=== PATIENT | female | born 1935 | race Caucasian/White ===

== ENCOUNTER 2023-08-14 19:44 | Emergency (ER) | payer OTHER, SELFPAY ==
[2023-08-14 19:52] VITALS: BP 145/64; PULSE 53; RESP 16; TEMP 36.2; O2SAT 96
[2023-08-14] MEDS: TRANEXAMIC ACID 100 MG/ML INJ 1000 MG TOPICAL (20:07)
--- NOTE | 2023-08-14 20:09 | ED.GENADULT ---
HPI - General Adult General Chief complaint: Dental/Oral/Mouth Injury/Pain Stated complaint: Bleeding post 4 teeth pulled on Time Seen by Provider: 08/14/23 19:53 Source: patient Mode of arrival: ambulatory Limitations: no limitations History of Present Illness HPI narrative: Patient is an 87-year-old woman here with her daughter. She lives at at a care facility, they called [facility] because she is having bleeding from her gums were she had teeth removed 4 days ago. Daughter says that she had done fine initially, she is on Eliquis for AFib and that was held for couple of days and then restarted 3 days ago. She had a little bit of bleeding on and off throughout the day today but apparently tonight it has been nonstop. She does not have any pain. No other complaints. Related Data Home Medications Medication Instructions Recorded Confirmed albuterol sulfate 90 mcg/actuation 1 - 2 puff inhalation Q4H PRN 08/14/23 08/14/23 aerosol inhaler wheezing allopurinol 300 mg tablet 300 mg PO DAILY 08/14/23 08/14/23 apixaban 5 mg tablet (Eliquis) 5 mg PO BID 08/14/23 08/14/23 calcium carbonate 500 mg-vitamin 1 tab PO 3XD 08/14/23 08/14/23 D3 10 mcg (400 unit) tablet (Oyster Shell Calcium-Vitamin D3) chlorhexidine gluconate 0.12 % PO 08/14/23 mouthwash citalopram 10 mg tablet 10 mg PO DAILY 08/14/23 08/14/23 citalopram 20 mg tablet 20 mg PO DAILY 08/14/23 08/14/23 fluticasone 250 mcg-salmeterol 50 1 ea inhalation BID 08/14/23 08/14/23 mcg/dose blistr powdr for inhalation inhalational spacing device 08/14/23 08/14/23 (Aerochamber Plus Flow-Vu) iron 150 mg-C 60 mg-B12 25 1 cap PO DAILY 08/14/23 08/14/23 mcg-folic acid 1 on-mnhjcls-ft.acid capsule (Ferrex) methylprednisolone 4 mg tablets in 0 mg PO DIRECTED 08/14/23 08/14/23 a dose pack metoprolol succinate 25 mg 25 mg PO DAILY 08/14/23 08/14/23 tablet,extended release 24 hr ondansetron 4 mg disintegrating 4 mg PO Q8H PRN nausea/vomiting 08/14/23 08/14/23 tablet potassium chloride 20 mEq 20 meq PO DAILY 08/14/23 08/14/23 tablet,extended release rosuvastatin 40 mg tablet 40 mg PO QPM 08/14/23 08/14/23 torsemide 20 mg tablet 20 mg PO DAILY 08/14/23 08/14/23 Allergies Allergy/AdvReac Type Severity Reaction Status Date / Time No Known Drug Allergies Allergy Verified 08/14/23 20:00 Exam Narrative: Exam Narrative: Vital signs reviewed In general, alert, well-appearing elderly woman. ENT: 1 of her central lower incisors has been removed, there was a flap of tissue and a little residual strand of what looks like absorbable suture, I suspect that there was a stitch there that came undone. There is consistent venous oozing from this spot. No arterial bleeding. Const: Vital Signs, click to edit/add: Vital Signs - 24 hr 08/14/23 19:52 Temperature 97.2 F L Pulse Rate [Pulse Oximeter] 53 L Respiratory Rate 16 Blood Pressure [Ri ght Upper Arm] 145/64 H Pulse Oximetry 96 Oxygen Delivery Me thod Room Air Documenting provider has reviewed patient's vital signs: yes Course Course ED Course: I'm going to try some topical TXA see if I can get this to stop. Would consider placing a suture if it does not respond, though the tissue looks kind of friable and I am not sure that there is anything that will hold a stitch. After topical TXA, bleeding has stopped. I think I am going to go ahead and let her go home, advised no eating or drinking tonight as this is certainly fragile tissue. If there is some recurrent using they can use pressure, provided with some gauze for that use. Uncontrolled bleeding, return to the ER. Her daughter was able to speak with the dentist who did not really have anything helpful to suggest aside from getting the bleeding stopped. If she is continuing to bleed throughout the day tomorrow would recommend that she see the dentist again. Vital Signs Vital signs: Initial Vital Signs Temperature 97.2 F L 08/14/23 19:52 Temperature Source Temporal Artery Scan 08/14/23 19:52 Pulse Rate 53 L 08/14/23 19:52 Respiratory Rate 16 08/14/23 19:52 Blood Pressure 145/64 H 08/14/23 19:52 Blood Pressure Mean 91 08/14/23 19:52 Blood Pressure Position Sitting 08/14/23 19:52 Pulse Oximetry 96 08/14/23 19:52 Oxygen Delivery Method Room Air 08/14/23 19:52 Vital Signs Temperature 97.2 F L 08/14/23 19:52 Pulse Rate 53 L 08/14/23 19:52 Respiratory Rate 16 08/14/23 19:52 Blood Pressure 145/64 H 08/14/23 19:52 Pulse Oximetry 96 08/14/23 19:52 Oxygen Delivery Method Room Air 08/14/23 19:52 Temperature 97.2 F L 08/14/23 19:52 Pulse Rate 53 L 08/14/23 19:52 Respiratory Rate 16 08/14/23 19:52 Blood Pressure 145/64 H 08/14/23 19:52 Pulse Oximetry 96 08/14/23 19:52 Oxygen Delivery Method Room Air 08/14/23 19:52 Medications Administered Medications: Discontinued Medications Generic Name Dose Route Start Last Admin Trade Name Freq PRN Reason Stop Dose Admin Tranexamic Acid 1,000 mg 08/14/23 20:02 08/14/23 20:07 Tranexamic Acid 100 Mg/Ml Inj TOPICAL 08/14/23 20:03 1,000 mg ONCE ONE Administration Discharge Plan Discharge Clinical Impression: Anticoagulated, Gingival bleeding Patient Disposition: Home, Self-Care Condition: Improved Additional Instructions: No eating or drinking tonight. Reassess tomorrow, if ongoing problems with oozing, can treat with pressure, would recommend dental follow-up. For uncontrolled bleeding, return any time to the ER. Prescriptions: No Action fluticasone propion-salmeterol 250-50 mcg/dose blister with device 1 ea INHALATION BID torsemide 20 mg tablet 20 mg PO DAILY citalopram 10 mg tablet 10 mg PO DAILY citalopram 20 mg tablet 20 mg PO DAILY allopurinol 300 mg tablet 300 mg PO DAILY metoprolol succinate 25 mg tablet extended release 24 hr 25 mg PO DAILY methylprednisolone 4 mg tablets,dose pack 0 mg PO DIRECTED albuterol sulfate 90 mcg/actuation HFA aerosol inhaler 1 - 2 puff INHALATION Q4H PRN (Reason: wheezing) ondansetron 4 mg tablet,disintegrating 4 mg PO Q8H PRN (Reason: nausea/vomiting) (DME) Aerochamber Plus Flow-Vu Spacer MISCELLANEOUS Patient Comments: FOR HOME USE* rosuvastatin 40 mg tablet 40 mg PO QPM chlorhexidine gluconate 0.12 % mouthwash PO Ferrex 150 Forte Plus 150-60-25-1 mu-pb-obk-mg capsule 1 cap PO DAILY calcium carbonate-vitamin D3 [Oyster Shell Calcium-Vit D3] 500 mg-10 mcg (400 unit) tablet 1 tab PO 3XD Eliquis 5 mg tablet 5 mg PO BID potassium chloride 20 mEq tablet extended release 20 meq PO DAILY Follow Up/Referrals: TAHIRA NAVARRETE DO [Primary Care Provider] - Stand Alone Forms: [employer] Info Instructions
--- NOTE | 2023-08-14 21:10 | PC.NURSE ---
patient DC accompanied by daughter, bleeding has stopped at this time. DC instructions reviewed with daughter and patient with no further questions. extra gauze sent home with patient
== END 2023-08-14 21:15 | disposition home or self-care (01) ==
PROVIDERS: Emergency Provider Emergency Medicine; PCP Student in an Organized Health Care Education/Training Program
DX: K06.8 Other specified disorders of gingiva and edentulous alveolar ridge (principal); Z79.01 Long term (current) use of anticoagulants
CPT/HCPCS: 99283; 99284

== ENCOUNTER 2023-11-05 12:02 | Emergency (ER) | payer OTHER, SELFPAY ==
[2023-11-05 12:06] VITALS: BP 92/57; PULSE 64; RESP 18; TEMP 36.6; O2SAT 95; BMI 42.9
--- NOTE | 2023-11-05 12:25 | CRLHL7_ITS ---
For Patients: As a result of the Century Cures Act, medical imaging exams and procedure reports are released immediately into your electronic medical record. You may view this report before your referring provider. If you have questions, please contact your health care provider. INDICATION: swelling, pain COMPARISON: None. TECHNIQUE: A compression venous ultrasound exam was performed of the right lower extremity using rosales-scale imaging, color Doppler and spectral Doppler analysis. FINDINGS: Sonographic imaging of the right lower extremity demonstrates normal compressibility and color Doppler venous blood flow within the common femoral vein and deep femoral vein. Prior GSV stripping. Within the thigh, the femoral vein is patent and compressible. At a lower level, the popliteal and posterior tibial veins also show normal compressibility and color Doppler venous blood flow. Limited imaging of the contralateral groin demonstrates a normal spectral waveform and color Doppler venous blood flow within the left common femoral vein. IMPRESSION: No evidence of deep vein thrombosis within the right lower extremity. Dictated by Marvin Griffiths MD @ 11/05/2023 1:09:52 PM (Electronically Signed)
--- NOTE | 2023-11-05 12:37 | ED_ITS ---
HPI - Extremity Injury (Lower) General Date Seen: 11/05/23 Chief Complaint: Lower Extremity Swelling Stated Complaint: RT leg possible cellulitis Time Seen by Provider: 11/05/23 12:05 Source: patient and family Mode of arrival: ambulatory Limitations: no limitations History of Present Illness HPI Narrative: This very nice 87-year-old lady presents here with right leg discomfort, and swelling. She has noted this in the last day or 2 but clearly has worsened today. They were worried about cellulitis that she has had this in the past, but there is no redness or warmth associated with this. She has no history of trauma or banging it. She has recently started Eliquis, as she has been having a couple cardioversions done, is due to have a pacemaker insertion in a few more weeks. She is brought in by family member. She has no previous history of DVT, denies any chest pain shortness of breath associated with this, coughing hemoptysis, or syncope. Related Data Home Medications ?Medication ?Instructions ?Recorded ?Confirmed albuterol sulfate 90 mcg/actuation 1 - 2 puff inhalation Q4H PRN 08/14/23 11/05/23 aerosol inhaler wheezing allopurinol 300 mg tablet 300 mg PO DAILY 08/14/23 11/05/23 apixaban 5 mg tablet (Eliquis) 5 mg PO BID 08/14/23 11/05/23 calcium carbonate 500 mg-vitamin 1 tab PO 3XD 08/14/23 11/05/23 D3 10 mcg (400 unit) tablet (Oyster Shell Calcium-Vitamin D3) chlorhexidine gluconate 0.12 % PO 08/14/23 mouthwash citalopram 10 mg tablet 10 mg PO DAILY 08/14/23 11/05/23 citalopram 20 mg tablet 20 mg PO DAILY 08/14/23 11/05/23 fluticasone 250 mcg-salmeterol 50 1 ea inhalation BID 08/14/23 11/05/23 mcg/dose blistr powdr for inhalation inhalational spacing device 08/14/23 08/14/23 (Aerochamber Plus Flow-Vu) iron 150 mg-C 60 mg-B12 25 1 cap PO DAILY 08/14/23 11/05/23 mcg-folic acid 1 lo-wntltrq-vi.acid capsule (Ferrex) metoprolol succinate 25 mg 37.5 mg PO DAILY 08/14/23 11/05/23 tablet,extended release 24 hr ondansetron 4 mg disintegrating 4 mg PO Q8H PRN nausea/vomiting 08/14/23 11/05/23 tablet potassium chloride 20 mEq 20 meq PO DAILY 08/14/23 11/05/23 tablet,extended release rosuvastatin 40 mg tablet 40 mg PO QPM 08/14/23 11/05/23 torsemide 20 mg tablet 10 mg PO DAILY 08/14/23 11/05/23 Allergies Allergy/AdvReac Type Severity Reaction Status Date / Time lisinopril AdvReac Verified 11/05/23 12:13 Review of Systems Status of ROS: Reports: 10 or more systems reviewed and unremarkable except as noted in History and below [facility] Social History Smoking Status: Unknown if ever smoked How often do you have a drink containing alcohol: never How often do you have six or more drinks on one occasion: Never AUDIT-C Alcohol total score: 0 Non-prescribed substance use: denies use service: No Exam Narrative: Exam Narrative: On examination lady's in no apparent distress pleasant and alert, maybe a little bit more swelling and right versus left, 2 cm difference between the circumference of the right calf verses the left. I do not see any edema, she has some venous varicosities there is no redness or warmth or any portal of entry suggestive of cellulitic pattern. Her eye popliteal fossa is clear, her DP and posterior tibial pulses normal, she has normal range of motion of her right ankle right knee, and right hip. No evidence on SLR of any sciatic type impingement. With no radiation of discomfort. She Const: Vital Signs, click to edit/add: Vital Signs - 24 hr 11/05/23 12:06 Temperature 97.8 F Pulse Rate [Pulse Oximeter] 64 Respiratory Rate 18 Blood Pressure [Le ft Upper Arm] 92/57 L Pulse Oximetry 95 Oxygen Delivery Me thod Room Air Documenting provider has reviewed patient's vital signs: yes Course Course ED Course: Given the clinical examination history, and the negative ultrasound I think we can send her home, they were very reassured by this, follow-up as needed, suggest acetaminophen for the discomfort as this may be leg cramp related. Continue current medication Vital Signs Vital signs: Initial Vital Signs Temperature 97.8 F 11/05/23 12:06 Temperature Source Temporal Artery Scan 11/05/23 12:06 Pulse Rate 64 11/05/23 12:06 Respiratory Rate 18 11/05/23 12:06 Blood Pressure 92/57 L 11/05/23 12:06 Blood Pressure Mean 68 L 11/05/23 12:06 Blood Pressure Position Sitting 11/05/23 12:06 Pulse Oximetry 95 11/05/23 12:06 Oxygen Delivery Method Room Air 11/05/23 12:06 Vital Signs Temperature 97.8 F 11/05/23 12:06 Pulse Rate 64 11/05/23 12:06 Respiratory Rate 18 11/05/23 12:06 Blood Pressure 92/57 L 11/05/23 12:06 Pulse Oximetry 95 11/05/23 12:06 Oxygen Delivery Method Room Air 11/05/23 12:06 Temperature 97.8 F 11/05/23 12:06 Pulse Rate 64 11/05/23 12:06 Respiratory Rate 18 11/05/23 12:06 Blood Pressure 92/57 L 11/05/23 12:06 Pulse Oximetry 95 11/05/23 12:06 Oxygen Delivery Method Room Air 11/05/23 12:06 Medications Administered Medications: Discontinued Medications Generic Name Dose Route Start Last Admin Trade Name Waldemar PRN Reason Stop Dose Admin Acetaminophen 1,000 mg 11/05/23 12:25 11/05/23 12:38 Acetaminophen 500 Mg Tablet PO 11/05/23 12:26 1,000 mg ONCE ONE Administration MDM - Extremity Injury (Lower) MDM Narrative Medical decision making narrative: To the right leg pain and swelling, I think the ultrasound will be ordered to rule out a DVT I think this is a little bit less likely given the fact she is already anticoagulated, but can occur. We will also be helpful to make sure that she does not have a hematoma formation secondary to her use of the anticoagulant. I do not think there has been Achilles rupture. Or any other issue associated with this. I do not think this is an internal knee derangement. We will give her some Tylenol also, she was comfortable with this plan. Medical Records Attestation: I reviewed the patient's medical records. Imaging Data Venous ultrasound: Attestation: I have reviewed the pertinent imaging results. My impression: No evidence of clot, normal compressibility, no fluid. Radiologist's impression: Negative acute Discharge Plan Discharge Clinical Impression: Leg pain, right Patient Disposition: Home w/ Parent or Adult Condition: Stable Instructions: Leg Cramps (ED), Leg Pain (ED) Additional Instructions: Ultrasound was negative for any suggestion of a clot, or hematoma, I wonder if this is more muscle related, and I would continue to monitor this use some Tylenol, reassurance given. Activity Level: Light activity Prescriptions: No Action fluticasone propion-salmeterol 250-50 mcg/dose blister with device 1 ea INHALATION BID torsemide 20 mg tablet 10 mg PO DAILY citalopram 10 mg tablet 10 mg PO DAILY citalopram 20 mg tablet 20 mg PO DAILY Hold Instructions: taking 10mg allopurinol 300 mg tablet 300 mg PO DAILY metoprolol succinate 25 mg tablet extended release 24 hr 37.5 mg PO DAILY albuterol sulfate 90 mcg/actuation HFA aerosol inhaler 1 - 2 puff INHALATION Q4H PRN (Reason: wheezing) ondansetron 4 mg tablet,disintegrating 4 mg PO Q8H PRN (Reason: nausea/vomiting) (DME) Aerochamber Plus Flow-Vu Spacer MISCELLANEOUS Patient Comments: FOR HOME USE* rosuvastatin 40 mg tablet 40 mg PO QPM chlorhexidine gluconate 0.12 % mouthwash PO Ferrex 150 Forte Plus 150-60-25-1 yg-qd-sku-mg capsule 1 cap PO DAILY Hold Instructions: not taking per patient calcium carbonate-vitamin D3 [Oyster Shell Calcium-Vit D3] 500 mg-10 mcg (400 unit) tablet 1 tab PO 3XD Eliquis 5 mg tablet 5 mg PO BID potassium chloride 20 mEq tablet extended release 20 meq PO DAILY Follow Up/Referrals: TAHIRA NAVARRETE DO [Primary Care Provider] - Stand Alone Forms: [employer] Info Instructions
[2023-11-05] MEDS: ACETAMINOPHEN 500 MG TABLET 1000 MG PO (12:38)
== END 2023-11-05 13:25 | disposition home or self-care (01) ==
PROVIDERS: Emergency Provider Family Medicine; PCP Student in an Organized Health Care Education/Training Program
DX: M79.604 Pain in right leg (principal)
CPT/HCPCS: 93971; 99283; 99284; A9270

== ENCOUNTER 2024-12-13 10:33 | Emergency (ER) | payer MEDICARE, BC, SELFPAY ==
--- OUTSIDE RECORDS SUMMARY | 2024-12-13 10:35 | XMS_ITS | Encounter Summary ---
Author Organization [facility] Address [address] [place] [address] Care Team Providers Care Bd Special Education Teacher Name Role Phone Acacia Wagner DO Primary Care Provider [phone] Encounter Details Date Type Department Care Team (Late st Contact Info) Description 08/27/2024 Orders Only [facility] [address] [place] [address] Everardo Wilson MD [address] [place] [address] Stage 3b chronic kidney disease (HCC) Social History Tobacco Use Types Packs/Day Years Used Date Smoking Tobacco: Former Cigarettes 0.5 15 0 04/16/1998 - 2013 Smokeless Tobacco: Never Alcohol Use Standard Drinks/Week Comments Not Currently 0 (1 standard drink = 0.6 oz pur e alcohol) Comments Unknown Sex and Gender Information Value Date Recorded Sex Assigned at Not on file Legal Sex Female 4:20 PM EST Gender Identity Not on file Sexual Orientation Not on file documented as of this encounter Plan of Treatment Upcoming Encounters Date Type Department Care Team (Late st Contact Info) Description 12/22/2024 3:30 PM CDT Office Visit [facility] [address] [place] [phone] Everardo Wilson MD [address] [place] [phone] 12/23/2024 Orders Only [facility] [place] [phone] Everardo Wilson MD [address] [place] [address] Stage 3b chronic kidney disease (HCC) documented as of this encounter Procedures Procedure Name Priority Date/Time Associated Diagnosis Comments IRON PANEL (FE, TIBC, TSAT) Routine 08/27/2024 10:13 AM CDT Stage 3b chronic kidney disease (HCC) URINALYSIS WITH MICROSCOPIC Routine 08/27/2024 10:13 AM CDT Stage 3b chronic kidney disease (HCC) HEMOGLOBIN Routine 08/27/2024 10:13 AM CDT Stage 3b chronic kidney disease (HCC) PTH, INTACT Routine 08/27/2024 10:13 AM CDT Stage 3b chronic kidney disease (HCC) FERRITIN Routine 08/27/2024 10:13 AM CDT Stage 3b chronic kidney disease (HCC) RENAL FUNCTION PANEL Routine 08/27/2024 10:13 AM CDT Stage 3b chronic kidney disease (HCC) documented in this encounter Results * (ABNORMAL) Urinalysis with microscopic (08/27/2024 10:13 AM CDT) Color, Urine YELLOW YELLOW [facility] Appearance Urine CLEAR CLEAR [facility] Specific Institute, UA 1.011 1.001 - 1.035 [facility] pH Urine 6.5 5.0 - 8.0 [facility] Glucose, Ur NEGATIVE NEGATIVE [facility] Bilirubin, Urine NEGATIVE NEGATIVE [facility] Ketones, Urine NEGATIVE NEGATIVE [facility] Hemoglobin Ur Ql Strip NEGATIVE NEGATIVE [facility] Protein, Ur TRACE(A) NEGATIVE [facility] Nitrite, Urine NEGATIVE NEGATIVE [facility] WBC Esterase Urine TRACE(A) NEGATIVE [facility] WBC, Urine 0-5 < OR = 5 /HPF [facility] RBC, Urine NONE SEEN < OR = 2 /HPF [facility] Epithelial Cells in Urine 0-5 < OR = 5 /HPF [facility] Bacteria NONE SEEN NONE SEEN /HPF [facility] Hyaline Casts, Urine 0-5(A) NONE SEEN /LPF [facility] Note: [facility] Comment: This urine was analyzed for the presence of WBC, RBC, bacteria, casts, and other formed elements. Only those elements seen were reported. Urine specimen (specimen) Urine specimen obtained by clean catch procedure / Unknown 08/27/2024 10:13 AM CDT 08/27/2024 10:14 AM CDT Narrative Resulting Agency Comment Performing Organization Information: Site ID: Name: [facility] Address: [address] [place] [phone] Director: Keaton Grady us Everardo Wilson MD LAB URINE ORDERABLES Final Re sult [facility] [place] [address] [phone] * (ABNORMAL) PTH, intact (08/27/2024 10:13 AM CDT) Parathyroid Hormone, Intact 166(H) 16 - 77 pg/mL [facility] Comment: Interpretive Guide Intact PTH Calcium ------- Normal Parathyroid Normal Normal Hypoparathyroidism Low or Low Normal Low Hyperparathyroidism Primary Normal or High High Secondary High Normal or Low Tertiary High High Non-Parathyroid Hypercalcemia Low or Low Normal High Blood specimen (specimen) Venous blood / Unknown 08/27/2024 10:13 AM CDT 08/27/2024 10:14 AM CDT Narrative Resulting Agency Comment Performing Organization Information: Site ID: CB Name: [facility] Address: [address] [place] [phone] Director: Keaton Grady Everardo Wilson MD LAB BLOOD ORDERABLES Final Re sult Performing Organization Address [facility] Co de Phone Number [facility] [address] [place] [phone] * Ferritin (08/27/2024 10:13 AM CDT) Ferritin 30 16 - 288 ng/mL [facility] Blood specimen (specimen) Venous blood / Unknown 08/27/2024 10:13 AM CDT 08/27/2024 10:14 AM CDT Narrative Resulting Agency Comment Performing Organization Information: Site ID: CB Name: [facility] Address: [address] [place] [phone] Director: Keaton Grady Everardo Wilson MD LAB BLOOD ORDERABLES Final Re sult Performing Organization Address [facility] de Phone Number [facility] Basilio Kilpatrick [address] [place] [phone] * Iron Panel (08/27/2024 10:13 AM CDT) Iron, Total 71 45 - 160 mcg/dL [facility] TIBC 317 250 - 450 mcg/dL (calc) [facility] Iron Saturation (TSat) 22 16 - 45 % (calc) [facility] Blood specimen (specimen) Venous blood / Unknown 08/27/2024 10:13 AM CDT 08/27/2024 10:14 AM CDT Narrative Resulting Agency Comment Performing Organization Information: Site ID: CB Name: [facility] Address: [address] [place] [phone] Director: Keaton Grady Everardo Wilson MD LAB BLOOD ORDERABLES Final Re sult Performing Organization Address [facility] Co de Phone Number [facility] Basilio [facility] [address] [place] [phone] * Hemoglobin (08/27/2024 10:13 AM CDT) Hemoglobin 12.1 11.7 - 15.5 g/dL [facility] Blood specimen (specimen) Venous blood / Unknown 08/27/2024 10:13 AM CDT 08/27/2024 10:14 AM CDT Narrative Resulting Agency Comment Performing Organization Information: Site ID: Name: [facility] Address: [address] [place] [phone] Director: Keaton Grady us Everardo Wilson MD LAB BLOOD ORDERABLES Final Re sult Performing Organization Address [facility] Co de Phone Number [facility]ilio [facility] [address] [place] [phone] * (ABNORMAL) Renal function panel (08/27/2024 10:13 AM CDT) Glucose 110(H) 65 - 99 mg/dL [facility] Comment: Fasting reference interval For someone without known diabetes, a glucose value between 100 and 125 mg/dL is consistent with prediabetes and should be confirmed with a follow-up test. BUN 45(H) 7 - 25 mg/dL [facility] Creatinine 2.49(H) 0.60 - 0.95 mg/dL [facility] eGFR CKD-EPI CR 2020 18(L) > OR = 60 mL/min/1.7 3m2 [facility] BUN/Creatinine Ratio 18 6 - 22 (calc) [facility] Sodium 143 135 - 146 mmol/L [facility] Potassium 4.0 3.5 - 5.3 mmol/L [facility] Chloride 103 98 - 110 mmol/L [facility] Bicarbonate (CO2) 29 20 - 32 mmol/L [facility] Calcium 9.4 8.6 - 10.4 mg/dL [facility] Phosphorus 3.3 2.1 - 4.3 mg/dL [facility] Albumin 3.8 3.6 - 5.1 g/dL [facility] Blood specimen (specimen) Venous blood / Unknown 08/27/2024 10:13 AM CDT 08/27/2024 10:14 AM CDT Narrative Resulting Agency Comment Performing Organization Information: Site ID: CB Name: [facility] Address: [address] [place] [phone] Director: Keaton Grady us Everardo Wilson MD LAB BLOOD ORDERABLES Final Re sult [facility] Basilio Kilpatrick [address] [place] [phone] documented in this encounter Visit Diagnoses Diagnosis Stage 3b chronic kidney disease (HCC) Stage 3b chronic kidney disease (HCC) documented in this encounter Care Teams Bd Special Education Teacher Relationship Specialty Start Date End Date Acacia Wagner DO [address] [place] [address] PCP - General Family Medicine 04/18/23 documented as of this encounter
--- OUTSIDE RECORDS SUMMARY | 2024-12-13 10:35 | XMS_ITS | Encounter Summary ---
Author Organization [facility] Address [address] [place] [address] Care Team Providers Care Shirt Finisher Name Role Phone Acacia Wagner DO Primary Care Provider [phone] Encounter Details Date Type Department Care Team (Late st Contact Info) Description 08/22/2024 Documentation Only [facility] [address] [place] [address] Wendy Edgar [address] [address] Social History Tobacco Use Types Packs/Day Years [...] Encounters Date Type Department Care Team (Late Contact Info) Description 12/22/2024 3:30 PM CDT Office Visit [facility] [address] [place] [address] Everardo Wilson MD [address] [place] [address] 12/23/2024 Orders Only [facility] [place] [address] Everardo Wilson MD [address] [place] [address] Stage 3b chronic kidney disease (HCC) documented as of this encounter Procedures Procedure Name Priority Date/Time Associated Diagnosis Comments BASIC METABOLIC PANEL (BMP) (EXTERNAL LAB ENTRY) Routine 08/13/2024 URINALYSIS Routine 08/13/2024 BASIC METABOLIC PANEL (BMP) (EXTERNAL LAB ENTRY) Routine 06/10/2024 documented in this encounter Results * (ABNORMAL) Basic Metabolic Panel (BMP) (08/13/2024) Sodium 140 mEq/L [facility] Potassium 3.8 mEq/L [facility] Chloride 100 [facility] Carbon Dioxide 28 mmol/L [facility] Calcium 9.3 mg/dL [facility] BUN 46(H) mg/dL [facility] Creatinine 2.67(H) mg/dL [facility] Glucose 93 mg/dL [facility] eGFR 17(L) [facility] Anion Gap 12 [facility] 08/13/2024 us Historical Provider LAB BLOOD ORDERABLES Char l Result [facility] * (ABNORMAL) Urinalysis (08/13/2024) WBC, Urine 26-50(A) [facility] RBC, Urine 0-2 [facility] Bacteria, Urine moderate(A ) [facility] Hyaline Casts, Urine 11-25(A) [facility] Epithelial Cells, (Ext Lab Entry) many(A) [facility] Urine specimen (specimen) Urine specimen obtained by clean catch procedure / Unknown 08/13/2024 us Historical Provider LAB URINE ORDERABLES Char l Result [facility] * (ABNORMAL) Basic Metabolic Panel (BMP) (06/10/2024) Sodium 139 mEq/L [facility] Potassium 4.4 mEq/L [facility] Chloride 97(L) [facility] Carbon Dioxide 33(H) mmol/L [facility] Calcium 9.4 mg/dL [facility] BUN 31(H) mg/dL [facility] Creatinine 1.84(H) mg/dL [facility] Glucose 103(H) mg/dL [facility] eGFR 26(L) [facility] Anion Gap 9 [facility] 06/10/2024 Historical Provider LAB BLOOD ORDERABLES Char l Result [facility] documented in this encounter Visit Diagnoses Not on filedocumented in this encounter Care Teams Shirt Finisher Relationship Specialty Start Date End Date Acacia Wagner [place] [address] PCP - General Family Medicine 04/18/23 documented as of this encounter
--- OUTSIDE RECORDS SUMMARY | 2024-12-13 10:35 | XMS_ITS | Encounter Summary ---
Author Organization [facility] Address [address] [place] [address] Care Team Providers Care Material Spreader Name Role Phone Acacia Wagner DO Primary Care Provider [phone] Encounter Details Date Type Department Care Team (Late st Contact Info) Description 03/08/2024 Orders Only [facility] [address] [place] [address] [phone] Everardo Wilson MD [address] [place] [address] Stage 3b chronic kidney disease (HCC) Social History Tobacco Use Types Packs/Day Years Used Date Smoking Tobacco: Former Cigarettes 0.5 15 1 - 2013 Smokeless Tobacco: Never Alcohol Use [...] of [facility] [address] [place] [address] Everardo Wilson MD [address] [place] [phone] 12/23/2024 Orders Only [facility] [address] [place] [address] Everardo Wilson MD [address] [place] [address] Stage 3b chronic kidney disease (HCC) documented as of this encounter Procedures Procedure Name Priority Date/Time Associated Diagnosis Comments HEMOGLOBIN Routine 02/26/2024 2:45 PM ADVANCED MANUFACTURING ENGINEER Stage 3b chronic kidney disease (HCC) PTH, INTACT Routine 02/26/2024 2:45 PM ADVANCED MANUFACTURING ENGINEER Stage 3b chronic kidney disease (HCC) RENAL FUNCTION PANEL Routine 02/26/2024 2:45 PM ADVANCED MANUFACTURING ENGINEER Stage 3b chronic kidney disease (HCC) documented in this encounter Results * Hemoglobin (02/26/2024 2:45 PM ADVANCED MANUFACTURING ENGINEER) Hemoglobin 12.3 11.7 - 15.5 g/dL See order comments Blood specimen (specimen) Venous blood / Unknown 02/26/2024 2:45 PM ADVANCED MANUFACTURING ENGINEER 02/26/2024 2:46 PM ADVANCED MANUFACTURING ENGINEER Narrative [facility] - 02/27/2024 1:33 PM ADVANCED MANUFACTURING ENGINEER FASTING:NO FASTING: NO Resulting Agency Comment Performing Organization Information: Site ID: CB Name[facility] Address: [address] [place] [phone] Director: Keaton Grady us Everardo Wilson MD LAB BLOOD ORDERABLES Final Re sult [facility] See order comments [place] [address] * (ABNORMAL) PTH, intact (02/26/2024 2:45 PM ADVANCED MANUFACTURING ENGINEER) Parathyroid Hormone, Intact 307(H) 16 - 77 pg/mL See order comments Comment: Interpretive Guide Intact PTH Calcium ------- Normal Parathyroid Normal Normal Hypoparathyroidism Low or Low Normal Low Hyperparathyroidism Primary Normal or High High Secondary High Normal or Low Tertiary High High Non-Parathyroid Hypercalcemia Low or Low Normal High Blood specimen (specimen) Venous blood / Unknown 02/26/2024 2:45 PM ADVANCED MANUFACTURING ENGINEER 02/26/2024 2:46 PM ADVANCED MANUFACTURING ENGINEER Narrative [facility] - 02/27/2024 1:33 PM ADVANCED MANUFACTURING ENGINEER FASTING:NO FASTING: NO Resulting Agency Comment Performing Organization Information: Site ID: Name: [facility] Address: [address] [place] [phone] Director: Keaton Grady us Everardo Wilson MD LAB BLOOD ORDERABLES Final Re sult [facility] See order comments [place] [address] * (ABNORMAL) Renal function panel (02/26/2024 2:45 PM ADVANCED MANUFACTURING ENGINEER) Glucose 105 65 - 139 mg/dL See order comments Comment: Non-fasting reference interval BUN 35(H) 7 - 25 mg/dL See order comments Creatinine 1.73(H) 0.60 - 0.95 mg/dL See order comments eGFR CKD-EPI CR 2020 28(L) > OR = 60 mL/min/1.7 3m2 See order comments BUN/Creatinine Ratio 20 6 - 22 (calc) See order comments Sodium 138 135 - 146 mmol/L See order comments Potassium 3.7 3.5 - 5.3 mmol/L See order comments Chloride 96(L) 98 - 110 mmol/L See order comments Bicarbonate (CO2) 35(H) 20 - 32 mmol/L See order comments Calcium 8.6 8.6 - 10.4 mg/dL See order comments Phosphorus 2.9 2.1 - 4.3 mg/dL See order comments Albumin 3.3(L) 3.6 - 5.1 g/dL See order comments Blood specimen (specimen) Venous blood / Unknown 02/26/2024 2:45 PM ADVANCED MANUFACTURING ENGINEER 02/26/2024 2:46 PM ADVANCED MANUFACTURING ENGINEER Narrative [facility] - 02/27/2024 1:33 PM ADVANCED MANUFACTURING ENGINEER FASTING:NO FASTING: NO Resulting Agency Comment Performing Organization Information: Site ID: CB Name: [facility] Address: [address] [place] [phone] Director: Keaton Grady us Everardo Wilson MD LAB BLOOD ORDERABLES Final Re sult [facility] See order comments [place] [address] documented in this encounter Visit Diagnoses Diagnosis Stage 3b chronic kidney disease (HCC) Stage 3b chronic kidney disease (HCC) documented in this encounter Care Teams Material Spreader Relationship Specialty Start Date End Date Acacia Wagner DO [address] [place] [address] PCP - General Family Medicine 04/18/23 documented as of this encounter
--- OUTSIDE RECORDS SUMMARY | 2024-12-13 10:35 | XMS_ITS | Encounter Summary ---
Author Organization [facility] [place] Address [address] [place] [address] Care Team Providers Care Junk Dealer Name Role Phone Acacia Wagner DO Primary Care Provider [phone] Encounter Details Date Type Department Care Team (Late st Contact Info) Description 12/05/2024 Telephone [facility] [place] [address] [place] [address] Wendy Edgar [address] [facility] [address] [place] [address] Social History Tobacco Use Types Packs/Day [...] on file documented as of this encounter Miscellaneous Notes * Telephone Encounter - Wendy Edgar - 12/05/2024 11:52 AM CDT Spoke to patient regarding previsit labs to be completed prior to their office visit. Orders Faxed to Irina Fitzgerald documented in this encounter Plan of Treatment Upcoming Encounters Date Type Department Care Team (Late st Contact Info) Description 12/22/2024 3:30 PM CDT Office Visit [facility] [place] [address] Everardo Wilson MD [address] [place] [phone] 12/23/2024 Orders Only [facility] [place] [address] Everardo Wilson MD [address] [place] [phone] Stage 3b chronic kidney disease (HCC) documented as of this encounter Visit Diagnoses Not on filedocumented in this encounter Care Teams Junk Dealer Relationship Specialty Start Date End Date Acacia Wagner [place] [address] PCP - General Family Medicine 04/18/23 documented as of this encounter
--- OUTSIDE RECORDS SUMMARY | 2024-12-13 10:35 | XMS_ITS | Encounter Summary ---
Author Organization [facility] Address [address] [place] [address] Care Team Providers Care Hybrid Derivatives Trader Name Role Phone Acacia Wagner DO Primary Care Provider [phone] Encounter Details Date Type Department Care Team (Late st Contact Info) Description 12/08/2024 Orders Only [facility] [address] [place] [phone] Grace Navarro, RN [address] [place] [address] Stage 3b chronic kidney disease (HCC) (Primary Dx) Social History Tobacco Use Types Packs/Day Years [...] PM CDT Office Visit [facility] [address] [place] [address] Everardo Wilson MD [address] [place] [phone] 12/23/2024 Orders Only [facility] [place] [address] Everardo Wilson MD [address] [place] [address] Stage 3b chronic kidney disease (HCC) documented as of this encounter Procedures Procedure Name Priority Date/Time Associated Diagnosis Comments HEMOGLOBIN Routine 12/09/2024 Stage 3b chronic kidney disease (HCC) RENAL FUNCTION PANEL Routine 12/09/2024 Stage 3b chronic kidney disease (HCC) documented in this encounter Results * Hemoglobin (12/09/2024) Hemoglobin 12.4 g/dL [facility] Blood Venous blood / Unknown 12/09/2024 Everardo Wilson MD LAB BLOOD ORDERABLES Final Re sult [facility] * (ABNORMAL) Renal Function Panel (12/09/2024) Glucose 118(H) mg/dL [facility] BUN 31(H) mg/dL [facility] Creatinine 2.04(H) mg/dL [facility] BUN/Creatinine Ratio 15 [facility] Sodium 142 mEq/L [facility] Potassium 4.0 mEq/L [facility] Chloride 98 [facility] Carbon Dioxide 35(H) mmol/L [facility] Calcium 8.8 mg/dL [facility] Phosphorus, Serum 2.6 mg/dL [facility] Albumin (Blood) 3.5(L) g/dL [facility] eGFR 23(L) [facility] Blood Venous blood / Unknown 12/09/2024 Everardo Wilson MD LAB BLOOD ORDERABLES Final Re sult [facility] documented in this encounter Visit Diagnoses Diagnosis Stage 3b chronic kidney disease (HCC)- Primary Stage 3b chronic kidney disease (HCC) documented in this encounter Care Teams Hybrid Derivatives Trader Relationship Specialty Start Date End Date Acacia Wagner DO [address] [place] [address] PCP - General Family Medicine 04/18/23 documented as of this encounter
--- OUTSIDE RECORDS SUMMARY | 2024-12-13 10:35 | XMS_ITS | Clinical Summary ---
Author Organization [facility] [place] [place] Address [address] [facility] [place] [address] Phone Care Team Providers Care Florist Manager Name Role Phone Acacia Wagner DO Primary Care Provider [phone] Allergies Active Allergy Reactions Criticality Noted Date Comments Adhesive Tape Other (see comments) 10/23/2006 all adhesives Latex Itching 02/01/2014 Lisinopril Other (see comments) 10/28/2014 Medications meclizine (ANTIVERT) 25 MG tablet Take 12.5 mg by mouth 3 (three) times a day if needed 1 Active nitroglycerin (NITROSTAT) 0.[address] 1 tablet under the tongue each time if needed for Chest Pain. May repeat every 5 minutes x 2 0 Active Multiple Vitamins-[address] als (OCUVITE PO) Take 1 tablet by mouth in the morning and 1 tablet in the evening. 0 Active rosuvastatin (CRESTOR) 40 MG tablet Take 40 mg by mouth in the morning. 3 Active torsemide (DEMADEX) 20 MG tablet Take 20 mg daily on Sunday, Sunday and Sunday and 10 mg on , Sunday and Sunday. 4 Active potassium chloride (K-TAB) 20 MEQ CR tablet TAKE ONE TABLET BY MOUTH ONE TIME DAILY with a meal.* 4 Active allopurinol (ZYLOPRIM) 300 MG tablet Take 300 mg by mouth in the morning. 4 Active apixaban (ELIQUIS) 2.5 MG tablet Take 2.5 mg by mouth in the morning and 2.5 mg in the evening. 4 Active albuterol HFA (PROVENTIL HFA;VENTOLIN HFA) 108 (90 Base) MCG/ACT inhaler Inhale 1-2 Puffs by mouth every 4 hours if needed for Wheezing 3 Active acetaminophen (TYLENOL) 500 MG tablet Take 500-1,000 mg by mouth every 4 hours if needed for Headache. Max acetaminophen dose: 4000mg in 24 hrs. Indications: PAIN Active Fluticasone-Sa lmeterol 250-50 MCG/ACT aerosol powder INHALE ONE PUFF BY MOUTH TWICE DAILY* 4 Active citalopram (CeleXA) 20 MG tablet Take 10 mg by mouth in the morning. 4 Active Fe-Succ Ac-C-Thre Ac-B12-FA (Ferrex 150 Forte Plus) 50-100 MG capsule Take 1 capsule by mouth 1 (one) time each day 90 capsule 3 4 Active amiodarone (PACERONE) 200 MG tablet Take 200 mg (1 tablet) 3 times daily for 3 weeks. Then decrease to 200 mg (1 tablet) once daily. 4 Active metoprolol succinate XL (TOPROL XL) 25 MG 24 hr tablet Take 25 mg by mouth in the morning. 4 Active Oyster Shell Calcium + D3 500-10 MG-MCG tablet TAKE ONE TABLET BY MOUTH THREE TIMES DAILY WITH MEALS* 5 Active mirtazapine (REMERON) 7.5 MG tablet Take 7.5 mg by mouth in the morning. 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, not otherwise specified 09/06/2023 Chronic systolic congestive heart failure 2023 Paroxysmal atrial fibrillation 09/06/2023 Mixed hyperlipidemia 09/06/2023 Hypertensive chronic kidney disease with stage 1 through stage 4 chronic kidney disease, or unspecified chronic kidney disease 04/12/2023 Morbid obesity 03/23/2022 Stage 3b chronic kidney disease 07/04/2021 Chronic bronchitis 07/04/2021 Impaired cognition 07/04/2021 Major depression in remission 06/05/2019 Adenomatous polyp of colon 03/21/2012 Overview (09/06/2023): Colonoscopy 03/2012 polyps repeat in 5 years Gout 02/26/2007 Encounters Date Type Department Care Team Description 12/10/2024 Results Follow-Up [facility] [address] [facility] [address] [place] [phone] Larissa Sparks RN 12/08/2024 Orders Only [facility] [address] [facility] [address] [place] [phone] Grace Navarro RN Stage 3b chronic kidney disease (HCC) (Primary Dx) 12/05/2024 Telephone [facility] [address] [facility] [address] [place] [phone] Wendy Edgar 10/01/2024 Results Follow-Up [facility] [address] [facility] [address] [place] [phone] Everardo Wilson MD 09/29/2024 Orders Only [facility] [address] [place] [phone] Radha Bustamante RN Hypertensive chronic kidney disease with stage 1 through stage 4 chronic kidney disease, or unspecified chronic kidney disease; Chronic kidney disease, stage 4 (severe) (HCC) from Last 3 Months Immunizations Immunization Administration Dates Next Due Influenza Split High Dose Preservative Free IM 1 Moderna SARS-COV-2 10/10/2021,06/04/2020 Moderna Sars-cov-2 (Covid-19 ) Vaccine, Mrna, Ricardo Protein 05/22/2023 Rsv, Bivalent, Protein Subun it Rsvpref, Diluent Reconstitutd 05/22/2023 Shingrix 08/19/2021,05/16/2021 Family History Medical History Relation Comments Heart disease Father Hyperlipidemia Father Cancer Father's Sister Breast cancer x2 Cancer Maternal Grandmother Liver and b reast cancer Cancer Mother Leukemia Cancer Paternal Grandmother Breast Canc er Cancer Sister Lung Cancer Relation Status Comments Father Father's Sister Maternal Grandmother Mother Paternal Grandmother Sister Social History Tobacco Use Types Packs/Day Years Used Date Smoking Tobacco: Former Cigarettes 0.5 15 0 04/16/1998 - 2013 Smokeless Tobacco: Never Tobacco Cessation:Counseling Given: Not Answered Alcohol Use Standard Drinks/Week Comments Not Currently 0 (1 standard drink = 0.6 oz pur e alcohol) Comments Unknown Sex and Gender Information Value Date Recorded Sex Assigned at Not on file Legal Sex Female 4:20 PM EST Gender Identity Not on file Sexual Orientation Not on file Last Filed Vital Signs Vital Sign Reading Time Taken Comments Blood Pressure 110/68 08/22/2024 11:23 AM CDT Pulse 70 08/22/2024 11:23 AM CDT Temperature - - Respiratory Rate - - Oxygen Saturation 97% 08/22/2024 11:23 AM CDT Inhaled Oxygen Concentration - - Weight 120 kg (264 lb) 08/22/2024 11:23 AM CDT Height 162.6 cm (5' 4) 08/22/2024 11:23 AM CDT Body Mass Index 45.32 08/22/2024 11:23 AM CDT Plan of Treatment Upcoming Encounters Date Type Department Care Team (Late st Contact Info) Description 12/22/2024 3:30 PM CDT Office Visit [facility] [place] [address] [phone] Everardo Wilson MD [address] [place] [address] 12/23/2024 Orders Only [facility] [place] [address] [address] Everardo Wilson MD [address] [place] [address] Stage 3b chronic kidney disease (HCC) Health Maintenance Due Date Last Done Comments Pneumococcal Vaccine: 50+ Ye ars (1 of 2 - PCV) 1954 Influenza Vaccine (#1) 2024 01/21/2024 Hepatitis B Vaccine Aged Out No longe r eligible based on patient's age to complete this topic Procedures Procedure Name Priority Date/Time Associated Diagnosis Comments HEMOGLOBIN Routine 12/09/2024 Stage 3b chronic kidney disease (HCC) RENAL FUNCTION PANEL Routine 12/09/2024 Stage 3b chronic kidney disease (HCC) BASIC METABOLIC PANEL Routine 09/30/2024 1:38 PM CDT Hypertensive chronic kidney disease with stage 1 through stage 4 chronic kidney disease, or unspecified chronic kidney disease Chronic kidney disease, stage 4 (severe) (HCC) IRON PANEL (FE, TIBC, TSAT) Routine 09/30/2024 1:37 PM CDT Other iron deficiency anemia URIC ACID Routine 09/30/2024 1:37 PM CDT Chronic kidney disease, stage 4 (severe) (HCC) PTH, INTACT Routine 09/30/2024 1:37 PM CDT Chronic kidney disease, stage 4 (severe) (HCC) HEMOGLOBIN Routine 09/30/2024 1:37 PM CDT Chronic kidney disease, stage 4 (severe) (HCC) RENAL FUNCTION PANEL Routine 09/30/2024 1:37 PM CDT Chronic kidney disease, stage 4 (severe) (HCC) from Last 3 Months Results * Hemoglobin (12/09/2024) Only the most recent of2 resultswithin the time period is included. Hemoglobin 12.4 g/dL [facility] Blood Venous blood / Unknown 12/09/2024 us Everardo Wilson MD LAB BLOOD ORDERABLES Final Re sult [facility] * (ABNORMAL) Renal Function Panel (12/09/2024) Only the most recent of2 resultswithin the time period is included. Glucose 118(H) mg/dL [facility] BUN 31(H) [...] [facility] Blood Venous blood / Unknown 12/09/2024 us Everardo Wilson MD LAB BLOOD ORDERABLES Final Re sult Performing Organization Address [facility] de Phone Number [facility] * (ABNORMAL) Basic metabolic panel (09/30/2024 1:38 PM CDT) Glucose 88 65 - 99 mg/dL [facility] Comment: Fasting reference interval BUN 31(H) 7 - 25 mg/dL [facility] Creatinine 1.99(H) 0.60 - 0.95 mg/dL [facility] eGFR CKD-EPI CR 2020 24(L) > OR = 60 mL/min/1.7 3m2 [facility] BUN/Creatinine Ratio 16 6 - 22 (calc) [facility] Sodium 139 135 - 146 mmol/L [facility] Potassium 4.0 3.5 - 5.3 mmol/L [facility] Chloride 100 98 - 110 mmol/L [facility] Bicarbonate (CO2) 29 20 - 32 mmol/L [facility] Calcium 8.8 8.6 - 10.4 mg/dL [facility] Blood specimen (specimen) Venous blood / Unknown 09/30/2024 1:38 PM CDT 09/30/2024 1:38 PM CDT Narrative Resulting Agency Comment Performing Organization Information: Site ID: [id number] Name: [facility]arr[facility] Address: [address] [place] [phone] Director: Keaton Grady Everardo Wilson MD LAB BLOOD ORDERABLES Final Re sult Performing Organization Address [facility] Co de Phone Number [facility] Marcelo [address] [phone] * Iron Panel (09/30/2024 1:37 PM CDT) Pathologist [facility] Iron, Total 83 45 - 160 mcg/dL [facility] TIBC 290 250 - 450 mcg/dL (calc) [facility] Iron Saturation (TSat) 29 16 - 45 % (calc) [facility] Blood specimen (specimen) Venous blood / Unknown 09/30/2024 1:37 PM CDT 09/30/2024 1:37 PM CDT Narrative [facility] - 10/01/2024 12:36 PM CDT COLLECTION KIT GIVEN TO PATIENT. PATIENT ADVISED TO RETURN. Resulting Agency Comment Performing Organization Information: Site ID: [id number] Name: [facility] Kilpatrick Address: [address] [place] [phone] Director: Keaton Grady Katerin Loredo BRAIDING MACHINE TENDER-SALES TRAINING REPRESENTATIVE LAB BLOOD ORDERABLES F inal Result Performing Organization Address [facility] Co de Phone Number [facility] [address] [phone] * Uric acid (09/30/2024 1:37 PM CDT) Pathologist [facility] Uric Acid 4.3 2.5 - 7.0 mg/dL [facility] Comment: Therapeutic target for gout patients: <6.0 mg/dL Blood specimen (specimen) Venous blood / Unknown 09/30/2024 1:37 PM CDT 09/30/2024 1:37 PM CDT Narrative [facility] - 10/01/2024 12:36 PM CDT COLLECTION KIT GIVEN TO PATIENT. PATIENT ADVISED TO RETURN. Resulting Agency Comment Performing Organization Information: Site ID: Name: Marcelo Kilpatrick Address: [address] [place] [phone] Director: Keaton Grady Katerin Loredo BRAIDING MACHINE TENDER-SALES TRAINING REPRESENTATIVE LAB BLOOD ORDERABLES F inal Result Performing Organization Address [facility]/ZIP Co de Phone Number [facility] VaunteVanessa Kilpatrick [address] [place] [address] * (ABNORMAL) PTH, intact (09/30/2024 1:37 PM CDT) Parathyroid Hormone, Intact 250(H) 16 - 77 pg/mL [facility] Kilpatrick Comment: Interpretive Guide Intact PTH Calcium ------- Normal Parathyroid Normal Normal Hypoparathyroidism Low or Low Normal Low Hyperparathyroidism Primary Normal or High High Secondary High Normal or Low Tertiary High High Non-Parathyroid Hypercalcemia Low or Low Normal High Blood specimen (specimen) Venous blood / Unknown 09/30/2024 1:37 PM CDT 09/30/2024 1:37 PM CDT Narrative [facility] - 10/01/2024 12:36 PM CDT COLLECTION KIT GIVEN TO PATIENT. PATIENT ADVISED TO RETURN. Resulting Agency Comment Performing Organization Information: Site ID: [id number] Name: Vaunte[facility] Kilpatrick Address: [address] [place] [phone] Director: Keaton Grady Katerin Loredo BRAIDING MACHINE TENDER-SALES TRAINING REPRESENTATIVE LAB BLOOD ORDERABLES F inal Result Performing Organization Address [facility]/ZIP Co de Phone Number [facility] VaunteVanessa Kilpatrick [address] [place] [address] from Last 3 Months Insurance [id number] [facility] [place] [id number] [facility] Medicare [place] [id number] Advance Directives Documents on File Type Date Recorded Patient Synchronous Motor Assembler Expl anation Power of Rn Maternity 04/19/2023 9:30 AM EPI Kraus Care Teams Florist Manager Relationship Specialty Start Date End [place] [address] PCP - General Family Medicine 04/18/23
--- OUTSIDE RECORDS SUMMARY | 2024-12-13 10:35 | XMS_ITS | Clinical Summary ---
Author Organization [facility] Address [address] [place] [address] Care Team Providers Care Automotive Brake Adjuster Name Role Phone Acacia Wagner Primary Care Provider [phone] Eleno Ndiaye MD Unavailable [phone] Allergies Active Allergy Reactions Criticality Noted Date Comments Adhesive *Unknown 10/23/2006 all adhesives Adhesive Tape 10/23/2006 all adhesives Latex Itching 02/01/2014 Lisinopril Cough 10/28/2014 Medications nitroglycerin (NITROSTAT) 0.4 mg sublingual tabletIndications :Coronary artery disease, angina presence unspecified, unspecified vessel or lesion type, unspecified whether [place] or transplanted heart Place 1 tablet under the tongue each time if needed for Chest Pain. May repeat every 5 minutes x 2 25 tablet 1 12/30/19 20 Active meclizine (ANTIVERT) 25 mg tabletIndications :Vertigo Take 0.5 Tablets by mouth 3 times daily if needed for Vertigo. 30 tablet. 06/29/19 21 Active torsemide (DEMADEX) 20 mg tabletIndications :Chronic diastolic CHF (congestive heart failure) (HC) Take 1 Tablet (20 mg) by mouth once daily. 90 Tablet 3 10/09/19 24 Active acetaminophen (TYLENOL) 325 mg tabletIndications :S/P placement of cardiac pacemaker Take 2 Tablets (650 mg) by mouth every 4 hours if needed for Pain (For mild pain.). Max acetaminophen dose: 4000mg in 24 hrs. 11/22/19 24 Active apixaban 2.5 mg tabletIndications :Paroxysmal atrial fibrillation (HC) Take 1 Tablet (2.5 mg) by mouth two times daily. 180 Tablet 3 07/11/19 25 Active albuterol HFA 90 mcg/actuation inhalerIndication s:Wheezing Inhale 1-2 Puffs by mouth every 4 hours while awake. 18 g 3 07/11/19 25 Active ferrous sulfate (IRON ORAL) Take 1 Capsule by mouth once daily. unsure of dosage Active amiodarone 200 mg tabletIndications :PAF (paroxysmal atrial fibrillation) (HC) Take 1 Tablet (200 mg) by mouth once daily. 90 Tablet 3 09/05/19 25 Active fluticasone propion-salmetero L 250-50 mcg/Dose diskus inhalerIndication s:Chronic bronchitis, unspecified chronic bronchitis type (HC),Wheezing Inhale 1 Puff by mouth two times daily. 180 Each 3 09/12/19 25 Active rosuvastatin 40 mg tabletIndications :NSTEMI (non-ST elevated myocardial infarction) (HC),ASHD (arteriosclerotic heart disease),Hyperlip idemia, unspecified hyperlipidemia type TAKE ONE TABLET BY MOUTH ONE TIME DAILY AT BEDTIME 90 Tablet 2 09/16/19 25 Active potassium chloride 20 mEq extended-release tabletIndications :Acute on chronic diastolic CHF (congestive heart failure) (HC) TAKE ONE TABLET BY MOUTH ONE TIME DAILY with a meal. 90 Tablet 2 09/15/19 25 Active QUEtiapine 25 mg tabletIndications :Hallucination,Po or sleep Take 1 Tablet (25 mg) by mouth at bedtime. 45 Tablet 3 10/17/19 25 Active allopurinoL (ZYLOPRIM) 300 mg tabletIndications :Gout involving toe, unspecified cause, unspecified chronicity, unspecified laterality TAKE ONE TABLET BY MOUTH ONE TIME DAILY 90 Tablet 10/25/19 25 Active citalopram (CELEXA) 20 mg tabletIndications :Reaction, adjustment, with depressed mood, prolonged TAKE ONE TABLET BY MOUTH ONE TIME DAILY 90 Tablet 1 10/25/19 25 Active calcium carbonate-vitamin D3 (500 mg-400 units) (Oyster Shell Calcium-Vit D3) tabletIndications :Osteopenia of hip, unspecified laterality Take 1 Tablet by mouth three times daily with meals. 270 Tablet 2 10/25/19 25 Active iron polysaccharide complex (NIFEREX-150 FORTE) 150-60-25-1 bc-cv-fmw-mg capIndications:Ot her iron deficiency anemia Take 1 Capsule by mouth once daily with a meal. 90 Capsule 3 04/12/20 025 Discontin ued(*Deana ent states no longer taking) eye vitamin-mineral vit C 226mg-vit E 90mg-copper 0.8mg-zinc 34.8 mg-lutein 5mg (PreserVision Lutein) capsule Take 1 Capsule by mouth two times daily. 025 Discontin ued(*Deana ent states no longer taking) omeprazole 20 mg tablet Take 20 mg by mouth once daily. 025 Discontin ued(*Med complete/ Regimen complete/ Level of care change) apixaban (Eliquis) 5 mg tabletIndications :Paroxysmal atrial fibrillation (HC) Take 0.5 Tablets (2.5 mg) by mouth two times daily. 07/11/19 025 Discontin ued(*Med complete/ Regimen complete/ Level of care change) methylPREDNISolon e (Medrol (Juan)) 4 mg tabletIndications :Migraine syndrome Take by mouth as instructed per packaging. 21 Tablet 11/11/19 25 025 Discontin ued(*Med complete/ Regimen complete/ Level of care change) Active Problems Problem Noted Date Diagnosed Date Chronic kidney disease, stage 4 (severe) 025 Chronic systolic congestive heart failure 2023 HTN (hypertension) 04/12/2023 Hypertensive chronic kidney disease with stage 1 through stage 4 chronic kidney disease, or unspecified chronic kidney disease 04/12/2023 Obesity, morbid 03/23/2022 Left-sided trigeminal neuralgia 07/04/2021 Micturition syncope 07/04/2021 Parotitis 07/04/2021 Unsteady gait 07/04/2021 Impaired cognition 07/04/2021 Chronic bronchitis 07/04/2021 Stage 3b chronic kidney disease 07/04/2021 PAF (paroxysmal atrial fibrillation) 06/14/2020 Overview (06/14/2020): Currently on Apixaban 2.5 mg BID. Follow with cardiology. Depression, major, in remission 06/05/2019 Diastolic heart failure 06/13/2014 ASHD (arteriosclerotic heart disease) 02/02/2014 Overview (02/02/2014): - 02/02/14 angiogram: s/p LANDEN RCA Cardiomyopathy 02/02/2014 NSTEMI (non-ST elevated myocardial infarction) 1 Hyperlipidemia 02/01/2014 Adenomatous colon polyp 03/21/2012 Overview (03/21/2012): Colonoscopy 03/2012 polyps repeat in 5 years Gout, unspecified 02/26/2007 Resolved Problems Problem Noted Date Diagnosed Date Resolved Date Acute on chronic diastolic C HF (congestive heart failure) 06/29/2023 02/19/2024 Encounters Date Type Department Care Team Description 12/09/2024 1:45 PM CDT Orders Only [facility] [address] [place] [address] Lab, [facility] 12/09/2024 Travel 12/09/2024 Telephone [facility] [address] [place] [address] Acacia Wagner DO Form (Signed med list ) 11/18/2024 Orders Only [facility] [address] [place] [address] Acacia Wagner DO <No scans attached> 11/10/2024 11:25 AM CDT Office Visit [facility] [address] [place] [address] Acacia Wagner DO Headache (X6 days - front to back of head - has been using tylenol with little relief ) 11/10/2024 Travel 11/10/2024 Nurse Triage [facility] [address] [place] [address] Acacia Wagner DO Headache 10/22/[address] [address] Acacia Wagner DO Refill Request (Allopurinol, Citalopram, Oyster Shell Calcium-vit D3) 10/15/2024 Telephone [facility] [address] [place] [address] Acacia Wagner DO Medication Management (QUEtiapine 25 mg tablet ) 10/01/2024 3:55 PM CDT Office Visit [facility] [address] [place] [address] Mallory Ziegler MD Ear Problem (needing to clear out ears ) 09/30/2024 Travel 09/23/2024 1:50 PM CDT Office Visit [facility] [address] [place] [address] Mallory Ziegler MD Ear Problem (Audiology at [facility] asks to have ear looked at and cleaned out if needed prior to hearing testing. Has an appointment 09/24) 09/23/2024 Travel 09/13/2024 Refill [facility] [address] [place] [address] Acacia Wagner DO Refill Request (Rosuvastatin, Potassium Chloride) from Last 3 Months Immunizations Immunization Administration Dates Next Due COVID-19 VACCINE SPIKEVAX (M ODERNA 50MCG/0.5ML) 12YO+ PFS 05/22/2023 COVID-19 vaccine (Moderna 100mcg/0.5mL) PF, MDV 10/10/2021,02/08/2021,07/02/2020,06/04 COVID-19 vaccine (Moderna 50 mcg/0.5mL) 12YO+ BIVALENT PF, MDV 02/09/2022 Influenza, High-dose Inactivated 01/21/2024,01/15,01/02/2015 Influenza, High-dose Quadriv alent Inactivated 02/01/2022 Influenza, IIV3 (Age >=3 years) 03/16/2007 Influenza, IIV4 (Age 6-35 Mos) 01/20/2013 Pneumococcal Poly,23-Valent (Pneumovax) 02/01/2015,01/02/2015 Pneumococcal conj 13-Valent (Prevnar 13) 02/10/2016 RSV, Bivalent Vaccine Recons tituted (Abrysvo 120MCG/0.5mL) 05/22/2023 Td (Age >=7 Years) 10/12/2003 Tdap 01/16/2015 Zoster (Shingrix-RZV, recombinant) 08/19/2021, Family History Medical History Relation Name Comments Heart Disease Father Hyperlipidemia Father Cancer Maternal Grandmother liver Cancer-breast Maternal Grandmother Cancer Mother luekemia Other Mother leukemia Cancer-breast Paternal Aunt x 2 Cancer-breast Paternal Grandmother Cancer Sister lung Relation Name Status Comments Father Maternal Grandmother Mother Paternal Aunt Paternal Grandmother Sister Social History Tobacco Use Types Packs/Day Years Used Date Smoking Tobacco: Former Cigarettes 0.5 15 1 - 02/03/2014 Smokeless Tobacco: Never Tobacco Cessation:Counseling Given: Yes Comments:TIP done 02/02/14 Alcohol Use Standard Drinks/Week Comments Not Currently 0 (1 standard drink = 0.6 oz pur e alcohol) PHQ-2 Answer Date Recorded PHQ-2 TOTAL SCORE 0 07/10/2024 Social Connections Answer Date Recorded Do you often feel lonely or isolated from those around you? 0 07/10/2024 Financial Resource Strain Answer Date R ecorded Difficulty of Paying Living Expenses 3 07/10/2024 Difficulty of Paying Living Expenses Not on file 07/10/2024 Food Insecurity Answer Date Recorded Do you worry your food will run out before you are able to buy more? 1 07/10/2024 Transportation Needs Answer Date Record ed Does lack of transportation keep you from medica l appointments? 1 07/10/2024 Does lack of transportation keep you from work, meetings or getting things that you need? 1 07/10/2024 Housing Stability Answer Date Recorded What is your housing situation today? 1 07/10/2024 Interpersonal Safety Answer Date Record ed Are you being hit, kicked, p ushed or yelled at (see row info)? No 11/20/2023 Interpersonal Safety Abuse 12 - 18 Not on file 11/20/2023 Interpersonal Safety Ambulatory Vulnerability No t on file 11/20/2023 Utilities Answer Date Recorded Do you have trouble paying f or utilities (for example, heat, electricity, water, phone)? 1 07/10/2024 Comments No Sex and Gender Information Value Date Recorded Sex Assigned at Not on file Legal Sex Female 6:09 AM STATISTICIAN APPLIED Gender Identity Not on file Sexual Orientation Not on file Occupation Industry Job Start Date Job End Date Not on file Not on file Not on file Not on file Obstetrics History Para Term AB IAB SAB Ectopic Multiple Livin g Live Births 5 5 5 Date Outcome GA Total Labor Labor/2nd/3rd Weight Sex Type Anes PTL Sabrina A1 A5 Name Clin Term Term Term Term Term Last Filed Vital Signs Vital Sign Reading Time Taken Comments Blood Pressure 118/70 11/10/2024 11:22 AM CDT Pulse 80 11/10/2024 11:22 AM CDT Temperature 36.7 C (98.1 F) 01/10/2024 1:25 PM CDT Respiratory Rate 16 11/22/2023 1:14 PM CDT Oxygen Saturation 98% 11/10/2024 11:22 AM CDT Inhaled Oxygen Concentration - - Weight 115.2 kg (254 lb) 11/10/2024 11:22 AM CDT Height 160 cm (5' 2.99) 09/04/2024 1:29 PM CDT Body Mass Index 45.01 09/04/2024 1:29 PM CDT Plan of Treatment Upcoming Encounters Date Type Department Care Team (Late st Contact Info) Description 12/17/2024 Cardiac Device Check [facility] [phone] 12/23/2024 11:30 AM CDT Office Visit [facility] [address] [place] [address] Eleno Ndiaye MD [address] [phone] 01/21/2025 11:15 AM CDT Orders Only [facility] [address] [place] [address] [place], [place] 02/12/2025 2:30 PM CDT Office Visit [facility] [address] [facility] [address] [place] [phone] Suraj Fletcher MD [address] [place] [phone] Health Maintenance Due Date Last Done Comments COVID-19 vaccine series ( season) 2024 01/21/2024, 05/22/2023, 02/09/2022, Additional history exists Influenza Vaccine (#1) 2024 , 02/10/2016, 01/02/2015, Additional history exists Tetanus booster 01/16/2025 01/16/2015, 10/12/2003 Medicare Wellness for age 65+ 07/11/2025 07/10/2024, 07/09/2023, 07/04/2022, Additional history exists Depression screening for age 12+ 07/14/2025 07/14/2024, 07/11/2024, 07/10/2024, Additional history exists BMI (ht and wt on same day) for age 18+ 09/04/2025 09/04/2024, 08/28/2024, 07/10/2024, Additional history exists Pneumococcal series for age 50+ Completed 02/10/2016, 02/01/2015, 01/02/2015 DEXA/DXA scan for age 65+ Completed 07/18/2021 Zoster (shingles) series for age 50+ Completed 08/19/2021, 05/16/2021 RSV vaccine for adults or Completed 05/22/2023 Hepatitis B series for 19+ Aged Out N o longer eligible based on patient's age to complete this topic Medical Devices Implanted Type Area Software Test Engineer Device Identifier Shelf Expiration Date Model / Serial / Lot Iol George +13 [id number] - [id number] Implanted:Qty: 1 on 06/18/2020 by Marvin Lund MD at [facility] Left: Eye [employer] 08/13/2020 [id number]. [id number] / [id number] / Procedures Procedure Name Priority Date/Time Associated Diagnosis Comments XR DXA BONE DENSITY 2 SITES AXIAL AND 1 SITE PERIPHERAL Routine 07/18/2021 1:20 PM CDT Stage 3 chronic kidney disease, unspecified whether stage 3a or 3b CKD (HC) Menopause from Last 3 Months or Most Recently Relevant to Health Maintenance Results * (ABNORMAL) XR DXA BONE DENSITY 2 SITES AXIAL AND 1 SITE PERIPHERAL (07/18/2021 1:20 PM CDT) Anatomical Region Laterality Modality LUMBAR SPINE Other Impressions 07/20/2021 5:15 PM CDT Osteopenia. RECOMMENDATIONS: The National Osteoporosis Foundation recommends pharmacologic treatment for patients with T-scores of -2.5 or less, patients with prior history of fragility fractures, or patients with 10-year probability of greater than 3% at hips or greater than 20% of suffering major osteoporotic fractures. Recommend continued optimization of calcium and vitamin D intake through dietary means and/or supplementation and regular exercise. Consider pharmacologic therapy for osteopenia with increased fracture risk. Follow-up bone density reading in 2 years if therapy initiated to assess therapeutic efficacy. Chantal Ruiz PA-C Narrative 07/20/2021 5:15 PM CDT For Patients: Results are automatically released to your [facility] account once available, in compliance with federal regulations. This means that you may see your results before your provider has had a chance to review them. Please allow 2-3 business days for your provider to comment on the results. XR DXA Bone Mineral Density (BMD) EXAM LOCATION: [facility] [address] [facility] [address] PATIENT NAME: Alissa Garcia DATE OF : 1935 EXAM DATE: 07/18/2021 REQUESTING PROVIDER: Acacia Wagner DO GENDER AT : female HEIGHT: 5' 3.39 (07/04/2021) WEIGHT: 237 lb 3.2 oz (07/04/2021) MENOPAUSAL STATUS: Postmenopausal RACE/ETHNICITY: White RISK FACTORS: Height Loss (2 inches or more), Menopause < Age 40, Smoking (prior) and White Race CURRENT MEDICATION FOR BONE LOSS: NONE INDICATION: Menopause and STAGE 3 KIDNEY DISEASE COMPARISON DATE(S): None DXA scans are compared to prior studies for a patient only when the two (or more) studies were performed on the same scanner. It is not possible to compare data generated on one scanner to data from another because there are not standards in DXA equipment. This applies even if the two scanners are made by the same valet attendant. PROCEDURE: Dual-energy x-ray absorptiometry performed with routine technique. Reporting is completed in the form of a T-score. The T-score represents the standard deviation from peak bone mass based on young healthy adult. A Z-score is used for diagnosis in premenopausal women, and for men under the age of 50. FINDINGS: RESULT LUMBAR SPINE L2 - L4 BMD: 1.715 g/cm2 T-Score: + 4.0 Z-Score: + 4.7 Change from prior: None RESULTS FEMUR Left femoral neck BMD: 0.800 g/cm2 T-Score: - 1.7 Z-Score: - 0.2 Change from prior: None Right femoral neck BMD: 0.808 g/cm2 T-Score: - 1.7 Z-Score: - 0.1 Change from prior: None Left hip BMD: 0.889 g/cm2 T-Score: - 0.9 Z-Score: + 0.4 Change from prior: None Right hip BMD: 0.924 g/cm2 T-Score: - 0.7 Z-Score: + 0.7 Change from prior: None RESULT FOREARM Left Forearm distal radius BMD: 0.939 g/cm2 T-Score: + 0.7 Z-Score: + 3.8 Change from prior: None WHO criteria: Normal: T-score at or above -1 SD Osteopenia: T-score between -1.1 and -2.4 SD Osteoporosis: T-score at or below -2.5 SD FRAX RISK CALCULATION (USED FOR OSTEOPENIA ONLY): 10-year probability of major osteoporotic fracture: 12.6%. 10-year probability of hip fracture: 3.3%. Adei Shaqra DO DEXA Final Result from Last 3 Months or Most Recently Relevant to Health Maintenance Insurance MEDICARE PART A HB ONLY [place] BLUE MR PB ONLY [place] BLUE HB ONLY MEDICARE PART B HB ONLY MEDICARE PART A HB ONLY MEDICARE PART B HB ONLY MR [place] HC [employer] PPS Advance Directives Documents on File Type Date Recorded Patient Sales Route Driver Expl anation POLST 05/09/2023 3:15 PM Healthcare Directive 02/02/2020 020 * DNR (Latest Code Status on File) Date Activated Date Inactivated Comments 11/20/2023 4:02 PM 11/22/2023 5:20 PM Question Answer Comments Code Status Discussion: Reviewed Preferences * Full Code Date Activated Date Inactivated Comments 10/16/2023 9:51 AM 10/16/2023 2:50 PM Question Answer Comments Code Status Discussion: Reviewed Preferences * Full Code Date Activated Date Inactivated Comments 10/16/2023 9:51 AM 10/16/2023 9:51 AM Question Answer Comments Code Status Discussion: Reviewed Preferences * Full Code Date Activated Date Inactivated Comments 03/24/2021 12:10 PM 03/24/2021 2:54 PM Question Answer Comments Code Status Discussion: Reviewed Preferences * Full Code Date Activated Date Inactivated Comments 06/18/2020 6:50 AM 06/18/2020 11:24 AM Question Answer Comments Code Status Discussion: Discussed Care Teams Automotive Brake Adjuster Relationship Specialty Start Date End Date Acacia Wagner DO [address] [place] [address] PCP - General Family Practice 10/15/20 Eleno Ndiaye MD [address] [place] [id number] [place] [address] Cardiovascular Disease 05/18/23
--- OUTSIDE RECORDS SUMMARY | 2024-12-13 10:35 | XMS_ITS | Encounter Summary ---
Author Organization [facility] Address [address] [facility] [address] [place] [address] Care Team Providers Care Oracle Fusion Middleware Developer Name Role Phone Aaccia Wagner DO Primary Care Provider [phone] Encounter Details Date Type Department Care Team (Late st Contact Info) Description 10/01/2024 Results Follow-Up [facility] [address] [facility] [address] [place] [address] Everardo Wilson MD [address] [place] [address] Social History Tobacco Use Types [...] on file documented as of this encounter Progress Notes * Everardo Wilson MD - 10/01/2024 10:37 AM CDT Renal function improved. Reviewed cardiology note and appears they took her off metoprolol. F/u with me in Dec as scheduled with labs prior to the visit. MyChart message sent to patient. -Ari Wilson MD documented in this encounter Plan of Treatment Upcoming Encounters Date Type Department Care Team (Late st Contact Info) Description 12/22/2024 3:30 PM CDT Office Visit [facility] [address] [place] [address] Everardo Wilson MD [address] [place] [phone] 12/23/2024 Orders Only [facility] [address] [place] [address] Everardo Wilson MD [address] [place] [phone] Stage 3b chronic kidney disease (HCC) documented as of this encounter Visit Diagnoses Not on filedocumented in this encounter Care Teams Oracle Fusion Middleware Developer Relationship Specialty Start Date End Date Acacia Wagner [place] [address] PCP - General Family Medicine 04/18/23 documented as of this encounter
--- OUTSIDE RECORDS SUMMARY | 2024-12-13 10:35 | XMS_ITS | Encounter Summary ---
Author Organization [facility] Address [address] [facility] [address] [place] [address] Care Team Providers Care Presales Senior Specialist Name Role Phone Acacia Wagner DO Primary Care Provider [phone] Encounter Details Date Type Department Care Team (Late st Contact Info) Description 12/10/2024 Results Follow-Up [facility] [address] [facility] [address] [place] [address] Larissa Sparks, CARL [address] [facility] [address] [place] [address] Social History Tobacco Use Types [...] CDT Office Visit [facility] [address] [place] [phone] Everardo Wilson MD [address] [place] [phone] 12/23/2024 Orders Only [facility] [place] [phone] Everardo Wilson MD [address] [place] [address] Stage 3b chronic kidney disease (HCC) documented as of this encounter Visit Diagnoses Not on filedocumented in this encounter Care Teams Presales Senior Specialist Relationship Specialty Start Date End Date Acacia Wagner DO [address] [place] [address] PCP - General Family Medicine 04/18/23 documented as of this encounter
--- OUTSIDE RECORDS SUMMARY | 2024-12-13 10:35 | XMS_ITS | Clinical Summary ---
Author Organization [facility] Address [address] , [address] [place] [address] Phone Care Team Providers Care Hand Cultivator Name Role [facility] Unavailable Unava ilable Conditions or Problems Problem Name Problem Code Onset Date Status Entry Date Provider Comment Standard Description Annotate Unsteady gait 42605619 (SNOMED CT) 07/04 Active 07/28 Haylee Jaqueline Unsteady when walking [facility] ( [facility] at 02:47:40 PM) Stage 3b chronic kidney disease N18.32 (ICD-10-CM ) 11/20 Active 07/28 Haylee Jaqueline Chronic kidney disease, stage 3b [facility] ( 5 at 02:47:40 PM) Parotitis 83387578 (SNOMED CT) 07/04 Active 07/28 Haylee Jaqueline Parotitis [facility] ( 5 at 02:47:40 PM) PAF (paroxysmal atrial fibrillation ) I48.0 (ICD-10-CM ) 11/20 Active 07/28 Haylee Jaqueline Paroxysmal atrial fibrillation [facility] ( 5 at 02:47:40 PM) Obesity, morbid E66.01 (ICD-10-CM ) 05/24 Active 07/28 Haylee Rakow Morbid (severe) obesity due to excess calories Imported from CDA: [facility] ( 5 at 02:47:40 PM) NSTEMI (non-ST elevated myocardial infarction) I21.4 (ICD-10-CM ) Active 07/28 Haylee Rakow Non-ST elevation (NSTEMI) myocardial infarction Imported from CDA: [facility] ( 5 at 02:47:40 PM) Micturition syncope R55 (ICD-10-CM ) 07/04 Active 07/28 Haylee Rakow Syncope and collapse Imported from CDA: [facility] ( 5 at 02:47:40 PM) Left-sided trigeminal neuralgia G50.0 (ICD-10-CM ) 07/04 Active 07/28 Haylee Rakow Trigeminal neuralgia Imported from CDA: [facility] ( at 02:47:40 PM) Impaired cognition R41.89 (ICD-10-CM ) 07/04 Active 07/28 Haylee Rakow Other symptoms and signs involving cognitive functions and awareness Imported from CDA: [facility] ( 5 at 02:47:40 PM) 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 (ICD-10-CM ) 04/20 Active 07/28 Haylee Rakow Hypertensive chronic kidney disease with stage 1 through stage 4 chronic kidney disease, or unspecified chronic kidney disease Imported from CDA: [facility] ( 5 at 02:47:40 PM) Hyperlipidem ia 34590127 (SNOMED CT) 11/20 Active 07/28 Haylee Rakow Hyperlipidemia Imported from CDA: [facility] ( 5 at 02:47:40 PM) HTN (hypertensio n) I10 (ICD-10-CM ) 11/20 Active 07/28 Haylee Rakow Essential (primary) hypertension [facility]: [facility] ( 5 at 02:47:40 PM) Gout 78560205 (SNOMED CT) 11/20 Active 07/28 Haylee Rakow Gout Imported from CDA: [facility] ( 5 at 02:47:40 PM) Diastolic heart failure 252114996 (SNOMED CT) 06/13 Active 07/28 Haylee Rakow Diastolic heart failure [facility] ( 5 at 02:47:40 PM) Depression, major, in remission F32.5 (ICD-10-CM ) 11/20 Active 07/28 Haylee Rakow Major depressive disorder, single episode, in full remission Imported from CDA: [facility] ( at 02:47:40 PM) Chronic systolic congestive heart failure I50.22 (ICD-10-CM ) 04/20 Active 07/28 Haylee Rakow Chronic systolic (congestive) heart failure [facility] ( 5 at 02:47:40 PM) Chronic kidney disease, stage 4 (severe) N18.4 (ICD-10-CM ) 06/10 Active 07/28 Haylee Rakow Chronic kidney disease, stage 4 (severe) Imported from CDA: [facility] ( 5 at 02:47:40 PM) Chronic bronchitis 77502282 (SNOMED CT) 11/20 Active 07/28 Haylee Rakow Chronic bronchitis [facility] ( 5 at 02:47:40 PM) Cardiomyopat hy 64844907 (SNOMED CT) 11/20 Active 07/28 Haylee Rakow Cardiomyopathy [facility] ( 5 at 02:47:40 PM) ASHD (arterioscle rotic heart disease) I25.10 (ICD-10-CM ) 11/20 Active 07/28 Haylee Tellezliliane Atherosclerotic heart disease of [place] coronary artery without angina pectoris Imported from CDA: [facility] ( 5 at 02:47:40 PM) Adenomatous colon polyp D12.6 (ICD-10-CM ) 05/22 Active 07/28 Haylee Tanosvaldo Benign neoplasm of colon, unspecified Imported from CDA: [facility] ( 5 at 02:47:40 PM) Medications Medication Instructions Start Date Stop Date Generic Name NDC Provider TORSEMIDE 20 MG TABS Take 1 Tablet (20 mg) by mouth once daily. torsemide [id number] QIEUSER QIEUSER ROSUVASTATIN CALCIUM 40 MG TABS TAKE ONE TABLET BY MOUTH ONE TIME DAILY AT BEDTIME rosuvastatin 61602767284 QIEUSER QIEUSER POTASSIUM CHLORIDE ER 20 MEQ CR-TABS TAKE ONE TABLET BY MOUTH ONE TIME DAILY with a meal. potassium chloride 12571098335 QIEUSER QIEUSER OMEPRAZOLE 20 MG TBEC Take 20 mg by mouth once daily. omeprazole [id number] QIEUSER QIEUSER NITROGLYCERIN 0.[address] 1 tablet under the tongue each time if needed for Chest Pain. May repeat every 5 minutes x 2 nitroglycerin [id number] QIEUSER QIEUSER MIRTAZAPINE 7.5 MG TABS Take 1 Tablet (7.5 mg) by mouth at bedtime. mirtazapine [id number] QIEUSER QIEUSER METOPROLOL SUCCINATE ER 25 MG [id number] Take 1 Tablet (25 mg) by mouth once daily. metoprolol succinate 90405420512 QIEUSER QIEUSER MECLIZINE HCL (MECLIZINE HCL) 25 MG TABS Take 0.5 Tablets by mouth 3 times daily if needed for Vertigo. MECLIZINE HCL QIEUSER QIEUSER iron polysaccharide complex (NIFEREX-150 FORTE) 150-60-25-1 Take 1 Capsule by mouth once daily with a meal. NIFEREX-150 FORTE QIEUSER QIEUSER fluticasone propion-salmetero L (ADVAIR) 250-50 mcg/Dose disk INHALE ONE PUFF BY MOUTH TWICE DAILY ADVAIR QIEUSER QIEUSER PRESERVISION/LUTE IN CAPS Take 1 Capsule by mouth two times daily. vit p-w-wijava-zinc -lutein 63861369895 QIEUSER QIEUSER CITALOPRAM HYDROBROMIDE 20 MG TABS TAKE ONE TABLET BY MOUTH ONE TIME DAILY citalopram 93783827510 QIEUSER QIEUSER CEFTRIAXONE SODIUM-DEXTROSE 1-3.74 GM-%(50ML) SOLR 1 g Intra-Muscular ceftriaxone in dextrose,iso-os 50796190601 QIEUSER QIEUSER CEFTRIAXONE SODIUM-DEXTROSE 1-3.74 GM-%(50ML) SOLR 1 g Intra-Muscular ceftriaxone in dextrose,iso-os [id number] QIEUSER QIEUSER CALCIUM CARB-CHOLECALCIFE ROL (CALCIUM CARB-CHOLECALCIFE ROL) 500-10 MG-MCG TABS Take 1 Tablet by mouth three times daily with meals. CALCIUM CARB-CHOLECALCI FEROL QIEUSER QIEUSER apixaban 2.5 mg tablet Take 1 Tablet (2.5 mg) by mouth two times daily. apixaban 2.5 mg tablet QIEUSER QIEUSER apixaban (Eliquis) 5 mg tablet Take 0.5 Tablets (2.5 mg) by mouth two times daily. Eliquis QIEUSER QIEUSER AMIODARONE HCL 200 MG TABS Take 1 Tablet (200 mg) by mouth once daily. Further refills at office visit with Dr Fletcher on 09/04/24. amiodarone [id number] QIEUSER QIEUSER ALLOPURINOL 300 MG TABS TAKE ONE TABLET BY MOUTH ONE TIME DAILY allopurinol 08263244753 QIEUSER QIEUSER ALBUTEROL SULFATE HFA 108 (90 Base) MCG/ACT AERS Inhale 1-2 Puffs by mouth every 4 hours while awake. albuterol sulfate [id number] QIEUSER QIEUSER ACETAMINOPHEN 325 MG TABS Take 2 Tablets (650 mg) by mouth every 4 hours if needed for Pain (For mild pain.). Max acetaminophen dose: 4000mg in 24 hrs. acetaminophen 78545294151 QIEUSER QIEUSER Medications Administered No information available. Allergies, Adverse Reactions, Alerts Allergy Name Reaction Description Start Date Severity Statu s Provider LISINOPRIL Cough Mild Active Haylee Rakow LATEX Itching Mild Active Haylee R akow ADHESIVE *Unknown Mild Active Haylee R akow ADHESIVE TAPE Mild Active Rebec ka Rakow Results Date Name Value Unit Range Flag Description Chart Maintenance: Patient I ntake CA 9.4 mg/dL Calcium [Mass /volume] in Serum or Plasma ABSOLUTE BAS completed 10*3/uL Basoph ils [#/volume] in Blood PTHBIOINTACT 134 pg/mL Parathor jazmine (parathyroid hormone), bio-intact NON-HDL CHOL 60 mg/dL choleste rol, non-HDL, total CHOL/HDL 2.15 cholesterol/ HDL ratio, serum CO2 TOTAL 33 mmol/L carbon diox jose alberto, serum, total GLUCOSE SER 103 mg/dL Glucose [ Mass/volume] in Serum or Plasma TRIGLYC TOT 81 mg/dL Triglycer jose alberto [Mass/volume] in Serum or Plasma - mg/dL BILI INDIREC 0.2 mg/dL bilirubi n, serum, indirect MPV 10.4 fL Platelet mean volume [Entitic volume] in Blood by Gui BUN/CREAT 17 Urea nitrog en/Creatinine [Mass Ratio] in Serum or Plasma IRON SATUR % 22 % Iron sat uration [Mass Fraction] in Serum or Plasma MCH 30.8 pg MCH [Entitic mass] by Automated count RDW 14.6 % Erythrocyte d istribution width [Ratio] by Automated count MCHC 32.6 % MCHC [Mass/vo lume] by Automated count MCV 97 fL MCV [Entitic volume] by Automated count ANION GAP 12 Anion gap 4 in Serum or Plasma SODIUM 139 mmol/L Sodium [Moles /volume] in Serum or Plasma IRON 66 ug/dL Iron [Mass/vo lume] in Serum or Plasma WBC 8.8 10*3/mm3 Leukocytes [ #/volume] in Blood by Automated count RBC 4.25 10*6/mm3 Erythrocytes [#/volume] in Blood by Automated count PLATELETS 232 10*3/mm3 Platelets [#/volume] in Blood by Automated count HGB 13.3 g/dL Hemoglobin [M ass/volume] in Blood HCT 40.2 % Hematocrit [V olume Fraction] of Blood by Automated count BILI TOTAL 0.4 mg/dL Bilirubin. total [Mass/volume] in Serum or Plasma SGPT (ALT) 17 U/L Alanine am inotransferase [Enzymatic activity/volume] in Serum or Plasma SGOT (AST) 22 U/L Aspartate aminotransferase [Enzymatic activity/volume] in Serum or Plasma PROTEIN, TOT 6.5 g/dL Protein [Mass/volume] in Serum or Plasma POTASSIUM 4.4 mmol/L Potassium [ Moles/volume] in Serum or Plasma MAGNESIUM 2.3 mg/dL Magnesium [ Moles/volume] in Serum or Plasma LDL 44 mg/dL Cholesterol i n LDL [Mass/volume] in Serum or Plasma - mg/dL TSH 4.06 u[iU]/mL Thyrotropin [Units/volume] in Serum or Plasma HDL 52 mg/dL Cholesterol i n HDL [Mass/volume] in Serum or Plasma - mg/dL FOLATE >24.0 ng/mL Folate [Mass/ volume] in Serum or Plasma FERRITIN 42.3 ng/mL Ferritin [Ma ss/volume] in Serum or Plasma BILI DIRECT 0.2 mg/dL Bilirubin .direct [Mass/volume] in Serum or Plasma CREATININE 1.84 mg/dL Creatinine [Mass/volume] in Serum or Plasma CHOLESTEROL 112 mg/dL Cholester ol [Mass/volume] in Serum or Plasma - mg/dL CHLORIDE 97 mmol/L Chloride [Mo les/volume] in Serum or Plasma BUN 31 mg/dL Urea nitrogen [Mass/volume] in Serum or Plasma B-12 1015 pg/mL Cobalamin (Vi tamin B12) [Mass/volume] in Serum or Plasma ALK PHOS 141 U/L Alkaline nikolas sphatase [Enzymatic activity/volume] in Blood Plan of Care No information available. Procedures No information available. Vital Signs No information available. Immunizations No information available. Advance Directives No information available.
--- OUTSIDE RECORDS SUMMARY | 2024-12-13 10:36 | XMS_ITS | Encounter Summary ---
Author Organization [facility] Address [address] [place] [address] Care Team Providers Care Windshield Wiper Repairer Name Role Phone Acacia Wagner DO Primary Care Provider [phone] Encounter Details Date Type Department Care Team (Late st Contact Info) Description 09/03/2024 Orders Only [facility] [place] [address] [address] [address] Katerin Loredo, AUTOMATION ENGINEERING MANAGER-MANAGER TALENT MANAGEMENT Chronic kidney disease, stage 4 (severe) (HCC); Other iron deficiency anemia Social History Tobacco Use Types Packs/Day Years [...] [facility] [place] [address] Everardo Wilson MD [address] [place] [phone] 12/23/2024 Orders Only [facility] [address] [place] [address] Everardo Wilson MD [address] [place] [phone] Stage 3b chronic kidney disease (HCC) documented as of this encounter Procedures Procedure Name Priority Date/Time Associated Diagnosis Comments IRON PANEL (FE, TIBC, TSAT) Routine 09/30/2024 1:37 PM CDT Other iron deficiency anemia HEMOGLOBIN Routine 09/30/2024 1:37 PM CDT Chronic kidney disease, stage 4 (severe) (HCC) URIC ACID Routine 09/30/2024 1:37 PM CDT Chronic kidney disease, stage 4 (severe) (HCC) PTH, INTACT Routine 09/30/2024 1:37 PM CDT Chronic kidney disease, stage 4 (severe) (HCC) RENAL FUNCTION PANEL Routine 09/30/2024 1:37 PM CDT Chronic kidney disease, stage 4 (severe) (HCC) documented in this encounter Results * Iron Panel (09/30/2024 1:37 PM CDT) Iron, Total 83 45 - 160 mcg/dL [facility] TIBC 290 250 - 450 mcg/dL (calc) [facility] Iron Saturation (TSat) 29 16 - 45 % (calc) [facility] Blood specimen (specimen) Venous blood / Unknown 09/30/2024 1:37 PM CDT 09/30/2024 1:37 PM CDT Narrative [facility] - 10/01/2024 12:36 PM CDT COLLECTION KIT GIVEN TO PATIENT. PATIENT ADVISED TO RETURN. Resulting Agency Comment Performing Organization Information: Site ID: CB Name: [facility] Address: [address] [place] [phone] Director: Keaton Grady Katerin Chamorro Gertrude [facility] LAB BLOOD ORDERABLES F inal Result Performing Organization Address [facility] de Phone Number [facility] [phone] * Uric acid (09/30/2024 1:37 PM CDT) Uric Acid 4.3 2.5 - 7.0 mg/dL [facility] so[facility]ail Kilpatrick Comment: Therapeutic target for gout patients: <6.0 mg/dL Blood specimen (specimen) Venous blood / Unknown 09/30/2024 1:37 PM CDT 09/30/2024 1:37 PM CDT Narrative [facility] - 10/01/2024 12:36 PM CDT COLLECTION KIT GIVEN TO PATIENT. PATIENT ADVISED TO RETURN. Resulting Agency Comment Performing Organization Information: Site ID: CB Name: [facility] Address: [address] [place] [phone] Director: Keaton Grady Katerin Pedro Pablo Loredo [facility] LAB BLOOD ORDERABLES F inal Result Performing Organization Address [facility] de Phone Number [facility] [phone] * (ABNORMAL) PTH, intact (09/30/2024 1:37 PM CDT) Parathyroid Hormone, Intact 250(H) 16 - 77 pg/mL [facility] Kilpatrick Comment: Interpretive Guide Intact PTH Calcium [...] Organization Information: Site ID: CB Name: [facility] Address: [address] [place] [phone] Director: Keaton Grady [facility] F inal Result Performing Organization Address [facility] Co de Phone Number [facility] [address] [place] [phone] * Hemoglobin (09/30/2024 1:37 PM CDT) Hemoglobin 12.4 11.7 - 15.5 g/dL [facility] Blood specimen (specimen) Venous blood / Unknown 09/30/2024 1:37 PM CDT 09/30/2024 1:37 PM CDT Narrative [facility] - 10/01/2024 12:36 PM CDT COLLECTION KIT GIVEN TO PATIENT. PATIENT ADVISED TO RETURN. Resulting Agency Comment Performing Organization Information: Site ID: CB Name: [facility] Address: [address] [place] [phone] Director: Keaton Grady Katerin Lawnah [facility]OMATION [facility]INE[facility] LAB BLOOD ORDERABLES F inal Result Performing Organization Address [facility] Co de Phone Number [facility] [address] [place] [phone] * (ABNORMAL) Renal function panel (09/30/2024 1:37 PM CDT) Glucose 87 65 - 99 mg/dL [facility] Comment: Fasting reference interval BUN 30(H) 7 - 25 mg/dL [facility] Creatinine 2.03(H) 0.60 - 0.95 mg/dL [facility] eGFR CKD-EPI CR 2020 23(L) > OR = 60 mL/min/1.7 3m2 [facility] BUN/Creatinine Ratio 15 6 - 22 (calc) [facility] Sodium 139 135 - 146 mmol/L [facility] Potassium 4.0 3.5 - 5.3 mmol/L [facility] Chloride 100 98 - 110 mmol/L [facility] Bicarbonate (CO2) 30 20 - 32 mmol/L [facility] Calcium 8.8 8.6 - 10.4 mg/dL [facility] Phosphorus 3.2 2.1 - 4.3 mg/dL [facility] Albumin 3.7 3.6 - 5.1 g/dL [facility] Blood specimen (specimen) Venous blood / Unknown 09/30/2024 1:37 PM CDT 09/30/2024 1:37 PM CDT Narrative [facility] - 10/01/2024 12:36 PM CDT COLLECTION KIT GIVEN TO PATIENT. PATIENT ADVISED TO RETURN. Resulting Agency Comment Performing Organization Information: Site ID: Name: [facility] Address: [address] [place] [phone] Director: Keaton Grady Katerin Loredo AUTOMATION ENGINEERING MANAGER-MANAGER TALENT MANAGEMENT LAB BLOOD ORDERABLES F inal Result [facility] [phone] documented in this encounter Visit Diagnoses Diagnosis Chronic kidney disease, stage 4 (severe) (HCC) Other iron deficiency anemia Stage 3b chronic kidney disease (HCC) documented in this encounter Care Teams Windshield Wiper Repairer Relationship Specialty Start Date End Date Acacia Wagner [place] [address] PCP - General Family Medicine 04/18/23 documented as of this encounter
[2024-12-13 10:47] VITALS: BP 108/58; PULSE 85; RESP 18; TEMP 36.8; O2SAT 89; BMI 46.6
--- NOTE | 2024-12-13 11:23 | CRLHL7_ITS ---
For Patients: As a result of the Century Cures Act, medical imaging exams and procedure reports are released immediately into your electronic medical record. You may view this report before your referring provider. If you have questions, please contact your health care provider. INDICATION: Shortness of breath. TECHNIQUE: Chest 2 views. COMPARISON: 08/15/2021. FINDINGS: Intracardiac device appears appropriately positioned. No pneumothorax or pleural effusion. Mild bibasilar scarring or atelectasis. Subtle prominence of the pulmonary interstitium. No focal airspace consolidation. Cardiomegaly. Mediastinal contours otherwise stable. Upper abdomen and osseous structures as imaged show no acute abnormality. IMPRESSION: Trace pulmonary edema and mild bibasilar atelectasis. Dictated by Óscar Collazo MD @ 12/13/2024 11:56:41 AM (Electronically Signed)
--- NOTE | 2024-12-13 11:29 | ED.GENADULT ---
HPI - General Adult General Chief complaint: Extremity Pain/Injury, Lower Stated complaint: bilateral leg swelling Time Seen by Provider: 12/13/24 11:08 Source: patient and family Mode of arrival: ambulatory Limitations: no limitations History of Present Illness HPI narrative: 89-year-old female presenting today with bilateral lower extremity swelling and redness. Patient states that yesterday the anterior lower extremities had a small area pink that was uncomfortable. Today that area has grown significantly in both legs are more swollen and tender. She denies any systemic symptoms such as fevers or chills, no weakness or lethargy, no changes in appetite. Patient does have a history of COPD and per her family she has been more short of breath than usual, patient denies this. Family states that they can here patient wheeze across the room when this is not usual for her. She states that her legs are constantly swollen this is not necessarily new, just the redness is. She states that she has had a history of cellulitis in the past. She is not coughing. She denies difficulty lying flat at night. No episodes of air hunger. No chest pain. Past medical history significant for COPD, congestive heart failure, pacemaker placement, hypokalemia, chronic anticoagulation, chronic kidney disease. Related Data Home Medications ?Medication ?Instructions ?Recorded ?Confirmed albuterol sulfate 90 mcg/actuation 1 - 2 puff inhalation Q4H PRN 08/14/23 12/13/24 aerosol inhaler wheezing allopurinol 300 mg tablet 300 mg PO DAILY 08/14/23 12/13/24 apixaban 5 mg tablet (Eliquis) 5 mg PO BID 08/14/23 12/13/24 calcium 500 mg (as 1 tab PO 3XD 08/14/23 12/13/24 carbonate)-vitamin D3 10 mcg (400 unit) tablet (Oyster Shell Calcium-Vitamin D3) citalopram 20 mg tablet 20 mg PO DAILY 08/14/23 12/13/24 fluticasone 250 mcg-salmeterol 50 1 ea inhalation BID 08/14/23 12/13/24 mcg/dose blistr powdr for inhalation inhalational spacing device 08/14/23 01/04/24 (Aerochamber Plus Flow-Vu) iron 150 mg-C 60 mg-B12 25 1 cap PO DAILY 08/14/23 12/13/24 mcg-folic acid 1 zz-lgzwtya-xa.acid capsule (Ferrex) potassium chloride 20 mEq 20 meq PO DAILY 08/14/23 12/13/24 tablet,extended release rosuvastatin 40 mg tablet 40 mg PO QPM 08/14/23 12/13/24 torsemide 20 mg tablet 10 mg PO DAILY 08/14/23 12/13/24 quetiapine 25 mg tablet 25 mg PO QPM 12/13/24 12/13/24 Previous Rx's ?Medication ?Instructions ?Recorded cephalexin 500 mg capsule 500 mg PO BID 7 days #14 caps 12/13/24 Allergies Allergy/AdvReac Type Severity Reaction Status Date / Time adhesive tape Allergy Verified 12/13/24 10:55 lisinopril AdvReac Verified 12/13/24 10:55 Review of Systems Status of ROS: Reports: 10 or more systems reviewed and unremarkable except as noted in History and below [facility] Social History Smoking Status: Never smoker How often do you have a drink containing alcohol: never How often do you have six or more drinks on one occasion: Never AUDIT-C Alcohol total score: 0 Non-prescribed substance use: denies use service: No Exam Narrative: Exam Narrative: Obese, well-developed patient in no acute distress. Answers questions appropriately. Mood and affect are appropriate. Thoughts are goal oriented and rational. No tangential or magical thinking noted. Patient is not tachypneic or tachycardic. HEENT: Normocephalic atraumatic. Pupils are equally round reactive to light. Extraocular muscles are intact. Conjunctivae are moist without any icterus noted. Moist mucous membranes. Cardiovascular: Heart is regular rate and rhythm . Lungs: Bilateral wheezing present, crackles of the right base. Abdomen: Soft and nontender nondistended with normal bowel sounds. Protuberant. Extremities: Bilateral lower extremities show 2+ pitting edema. Anterior shins bilaterally are both quite erythematous and hot to touch. The skin over this area is indurated, remainder of the lower extremity skin is not indurated. Skin: Well perfused. Const: Vital Signs, click to edit/add: Vital Signs - 24 hr 12/13/24 10:47 Temperature 98.3 F Pulse Rate [Right Pulse Oximeter] 85 Respiratory Rate 18 Blood Pressure [Ri ght Upper Arm] 108/58 L Pulse Oximetry 89 Oxygen Delivery Me thod Room Air Course Course ED Course: EKG, read by me, shows an atrial paced rhythm with a pulse of 70. CBC is unremarkable. Potassium 3.5. Evidence of chronic kidney disease with a creatinine of 1.9, BUN 35 and GFR of 25. Troponin is 0. CRP is less than 0.5. BNP is 1400 Chest x-ray shows mild pulmonary edema. Patient received a DuoNeb which helped her wheezing on repeat examination, patient felt that she did not feel any different. But again, was not complaining of any shortness of breath began with. Vital Signs Vital signs: Initial Vital Signs Temperature 98.3 F 12/13/24 10:47 Temperature Source Temporal Artery Scan 12/13/24 10:47 Pulse Rate 85 12/13/24 10:47 Pulse Rhythm Regular 12/13/24 10:47 Pulse Strength 3+ Normal 12/13/24 10:47 Respiratory Rate 18 12/13/24 10:47 Blood Pressure 108/58 L 12/13/24 10:47 Blood Pressure Mean 74 12/13/24 10:47 Blood Pressure Position Sitting 12/13/24 10:47 Pulse Oximetry 89 12/13/24 10:47 Oxygen Delivery Method Room Air 12/13/24 10:47 Vital Signs Temperature 98.3 F 12/13/24 10:47 Pulse Rate 85 12/13/24 10:47 Respiratory Rate 18 12/13/24 10:47 Blood Pressure 108/58 L 12/13/24 10:47 Pulse Oximetry 89 12/13/24 10:47 Oxygen Delivery Method Room Air 12/13/24 10:47 Temperature 98.3 F 12/13/24 10:47 Pulse Rate 85 12/13/24 10:47 Respiratory Rate 18 12/13/24 10:47 Blood Pressure 108/58 L 12/13/24 10:47 Pulse Oximetry 89 12/13/24 10:47 Oxygen Delivery Method Room Air 12/13/24 10:47 Medications Administered Medications: Discontinued Medications Generic Name Dose Route Start Last Admin Trade Name Freq PRN Reason Stop Dose Admin Albuterol/Ipratropium 1 neb 12/13/24 11:23 12/13/24 12:06 Iprat-Albut 0.5-2.5 Mg/3 Ml Neb IH 12/13/24 11:24 1 neb ONCE ONE Administration Medical Decision Making MDM Narrative Medical decision making narrative: 89-year-old female with bilateral lower extremity swelling with developing redness heat and pain concerning for cellulitis. We discussed that would be unusual to develop bilateral cellulitis however her symptoms are concerning for that. Will place the patient on Keflex 500 mg p.o. b.i.d. given her chronic kidney disease. 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 Lab Data Lab results reviewed: Yes I reviewed the patient's lab results Labs: Lab Results 12/13/24 Range/Units 11:37 WBC 6.70 (4.50-11.00) K/uL RBC 3.86 L (4.00-5.20) m/uL Hgb 12.4 (12.0-16.0) gm/dL Hct 39.3 (33.0-51.0) % MCV 102 H (80-100) fL MCH 32 (26-34) pg MCHC 32 (32-36) gm/dL RDW Coeff of Awa 14.8 (11.5-15.5) % Plt Count 240 (140-440) K/uL Neut % (Auto) 67.2 (42.0-72.0) % Lymph % (Auto) 20.0 (20-44) % [place] % (Auto) 9.9 (0.0-11.0) % Eos % (Auto) 2.5 (0.0-7.0) % Baso % (Auto) 0.3 (0.0-3.0) % Neut # (Auto) 4.50 (1.7-7.0) K/uL Lymph # (Auto) 1.34 (0.90-2.90) K/uL [place] # (Auto) 0.70 (0.00-0.90) K/UL Eos # (Auto) 0.17 (0.00-0.50) K/uL Baso # (Auto) 0.02 (0.00-0.30) K/uL Abs Immat Gran (auto) 0.01 (0.00-0.30) K/uL Imm/Tot Granulo (auto) 0.1 % Sodium 138 (135-149) mmol/L Potassium 3.5 L (3.6-5.1) mmol/L Chloride 97 (96-114) mmol/L Carbon Dioxide 37 H (20-32) mmol/L Anion Gap 4 L (7-15) mEq/L BUN 35 H (7-30) mg/dL Creatinine 1.9 H (0.5-1.5) mg/dL Estimated Creat Clear 17.26 Estimated GFR 25 ml/min Glucose 123 H (60-115) mg/dL Calcium 9.3 (8.4-10.6) mg/dL Troponin I < 0.01 (0.01-0.04) ng/mL C-Reactive Protein < 0.5 L (0.5-1.0) mg/dL NT-Pro-B Natriuret Pep 1400 H (See Note) pg/mL Imaging Data Chest x-ray: Attestation: I have reviewed the pertinent imaging results. Radiologist's impression: Shortness of breath. TECHNIQUE: Chest 2 views. COMPARISON: 08/15/2021. FINDINGS: Intracardiac device appears appropriately positioned. No pneumothorax or pleural effusion. Mild bibasilar scarring or atelectasis. Subtle prominence of the pulmonary interstitium. No focal airspace consolidation. Cardiomegaly. Mediastinal contours otherwise stable. Upper abdomen and osseous structures as imaged show no acute abnormality. IMPRESSION: Trace pulmonary edema and mild bibasilar atelectasis. ECG Data Attestation: I personally reviewed and interpreted this ECG as follows: Discharge Plan Discharge Clinical Impression: Cellulitis Patient Disposition: Home w/ Parent or Adult Condition: Stable Instructions: Cellulitis (ED) Additional Instructions: Take all antibiotics as prescribed. Return to the ER if you develop nausea, lethargy or fever. Keep follow-up appointments as scheduled to discuss if any changes need to be made to your water pill. Prescriptions: New cephalexin 500 mg capsule 500 mg PO BID 7 Days Qty: 14 0RF No Action quetiapine 25 mg tablet 25 mg PO QPM fluticasone propion-salmeterol 250-50 mcg/dose blister with device 1 ea INHALATION BID torsemide 20 mg tablet 10 mg PO DAILY citalopram 20 mg tablet 20 mg PO DAILY allopurinol 300 mg tablet 300 mg PO DAILY albuterol sulfate 90 mcg/actuation HFA aerosol inhaler 1 - 2 puff INHALATION Q4H PRN (Reason: wheezing) (DME) Aerochamber Plus Flow-Vu Spacer MISCELLANEOUS Patient Comments: FOR HOME USE* rosuvastatin 40 mg tablet 40 mg PO QPM Ferrex 150 Forte Plus 150-60-25-1 bu-qn-lsv-mg capsule 1 cap PO DAILY calcium carbonate-vitamin D3 [Oyster Shell Calcium-Vit D3] 500 mg-10 mcg (400 unit) tablet 1 tab PO 3XD Eliquis 5 mg tablet 5 mg PO BID potassium chloride 20 mEq tablet extended release 20 meq PO DAILY Follow Up/Referrals: TAHIRA NAVARRETE DO [Primary Care Provider, Family Practice] Stand Alone Forms: MyHealth Info Instructions
--- OUTSIDE RECORDS SUMMARY | 2024-12-13 11:34 | XMS_ITS | Clinical Summary ---
Author Organization [facility] Address [address] , [address] [place] [address] Phone Care Team Providers Care Mogul Operator Name Role Phone [facility] Unavailable Unava ilable Conditions or Problems Problem Name Problem Code Onset Date Status Entry Date Provider Comment Standard Description Annotate Unsteady gait 10740658 (SNOMED CT) 07/04 Active 07/28 Haylee Jaqueline Unsteady when walking [facility] ( [facility] at 02:47:40 PM) Stage 3b chronic kidney disease N18.32 (ICD-10-CM ) 11/20 Active 07/28 Haylee Jaqueline Chronic kidney disease, stage 3b [facility] ( 5 at 02:47:40 PM) Parotitis 26416851 (SNOMED CT) 07/04 Active 07/28 Haylee Jaqueline Parotitis [facility] ( 5 at 02:47:40 PM) PAF (paroxysmal atrial fibrillation ) I48.0 (ICD-10-CM ) 11/20 Active 07/28 Haylee Jaqueline Paroxysmal atrial fibrillation [facility] ( 5 at 02:47:40 PM) Obesity, morbid E66.01 (ICD-10-CM ) 05/24 Active 07/28 Haylee Rakow Morbid (severe) obesity due to excess calories Imported from [facility]: [facility] ( 5 at 02:47:40 PM) NSTEMI (non-ST elevated myocardial infarction) I21.4 (ICD-10-CM ) Active 07/28 Haylee Rakow Non-ST elevation (NSTEMI) myocardial infarction Imported from [facility]: [employer] [facility] ( 5 at 02:47:40 PM) Micturition syncope R55 (ICD-10-CM ) 07/04 Active 07/28 Haylee Rakow Syncope and collapse Imported from [facility]: [employer] [facility] ( 5 at 02:47:40 PM) Left-sided trigeminal neuralgia G50.0 (ICD-10-CM ) 07/04 Active 07/28 Haylee Rakow Trigeminal neuralgia Imported from [facility]: [employer] [facility] ( at 02:47:40 PM) Impaired cognition R41.89 (ICD-10-CM ) 07/04 Active 07/28 Haylee Rakow Other symptoms and signs involving cognitive functions and awareness Imported from [facility]: [employer] [facility] ( 5 at 02:47:40 PM) 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 (ICD-10-CM ) 04/20 Active 07/28 Haylee Rakow Hypertensive chronic kidney disease with stage 1 through stage 4 chronic kidney disease, or unspecified chronic kidney disease Imported from [facility]: [employer] [facility] ( 5 at 02:47:40 PM) Hyperlipidem ia 56803029 (SNOMED CT) 11/20 Active 07/28 Haylee Rakow Hyperlipidemia Imported from [facility]: [employer] [facility] ( 5 at 02:47:40 PM) HTN (hypertensio n) I10 (ICD-10-CM ) 11/20 Active 07/28 Haylee Rakow Essential (primary) hypertension [facility] ( 5 at 02:47:40 PM) Gout 19475104 (SNOMED CT) 11/20 Active 07/28 Haylee Rakow Gout Imported from [facility]: [employer] [facility] ( 5 at 02:47:40 PM) Diastolic heart failure 264897741 (SNOMED CT) 06/13 Active 07/28 Haylee Rakow Diastolic heart failure [facility] ( 5 at 02:47:40 PM) Depression, major, in remission F32.5 (ICD-10-CM ) 11/20 Active 07/28 Haylee Rakow Major depressive disorder, single episode, in full remission Imported from [facility]: [employer] [facility] ( at 02:47:40 PM) Chronic systolic congestive heart failure I50.22 (ICD-10-CM ) 04/20 Active 07/28 Haylee Rakow Chronic systolic (congestive) heart failure [facility] ( 5 at 02:47:40 PM) Chronic kidney disease, stage 4 (severe) N18.4 (ICD-10-CM ) 06/10 Active 07/28 Haylee Rakow Chronic kidney disease, stage 4 (severe) Imported from [facility]: [employer] [facility] ( 5 at 02:47:40 PM) Chronic bronchitis 81992116 (SNOMED CT) 11/20 Active 07/28 Haylee Rakow Chronic bronchitis [facility] ( 5 at 02:47:40 PM) Cardiomyopat hy 37506443 (SNOMED CT) 11/20 Active 07/28 Haylee Rakow Cardiomyopathy [facility] ( 5 at 02:47:40 PM) ASHD (arterioscle rotic heart disease) I25.10 (ICD-10-CM ) 11/20 Active 07/28 Haylee Tellezliliane Atherosclerotic heart disease of [place] coronary artery without angina pectoris Imported from [facility]: [facility] ( 5 at 02:47:40 PM) Adenomatous colon polyp D12.6 (ICD-10-CM ) 05/22 Active 07/28 Haylee Tanosvaldo Benign neoplasm of colon, unspecified Imported from [facility]: [facility] ( 5 at 02:47:40 PM) Medications Medication Instructions Start Date Stop Date Generic Name NDC Provider TORSEMIDE 20 MG TABS Take 1 Tablet (20 mg) by mouth once daily. torsemide [id number] QIEUSER QIEUSER ROSUVASTATIN CALCIUM 40 MG TABS TAKE ONE TABLET BY MOUTH ONE TIME DAILY AT BEDTIME rosuvastatin [id number] QIEUSER QIEUSER POTASSIUM CHLORIDE ER 20 MEQ CR-TABS TAKE ONE TABLET BY MOUTH ONE TIME DAILY with a meal. potassium chloride [id number] QIEUSER QIEUSER OMEPRAZOLE 20 MG TBEC Take 20 mg by mouth once daily. omeprazole [id number] QIEUSER QIEUSER NITROGLYCERIN 0.[address] 1 tablet under the tongue each time if needed for Chest Pain. May repeat every 5 minutes x 2 nitroglycerin [id number] QIEUSER QIEUSER MIRTAZAPINE 7.5 MG TABS Take 1 Tablet (7.5 mg) by mouth at bedtime. mirtazapine [id number] QIEUSER QIEUSER METOPROLOL SUCCINATE ER 25 MG [id number] Take 1 Tablet (25 mg) by mouth once daily. metoprolol succinate [id number] QIEUSER QIEUSER MECLIZINE HCL (MECLIZINE HCL) 25 [...] Capsule by mouth two times daily. vit i-i-uhnsfy-zinc -lutein 88031972091 QIEUSER QIEUSER CITALOPRAM HYDROBROMIDE 20 MG TABS TAKE ONE TABLET BY MOUTH ONE TIME DAILY citalopram [id number] QIEUSER QIEUSER CEFTRIAXONE SODIUM-DEXTROSE 1-3.74 GM-%(50ML) SOLR 1 g Intra-Muscular ceftriaxone in dextrose,iso-os [id number] QIEUSER QIEUSER CEFTRIAXONE SODIUM-DEXTROSE 1-3.74 GM-%(50ML) SOLR 1 g Intra-Muscular ceftriaxone in dextrose,iso-os [id number] QIEUSER QIEUSER CALCIUM CARB-CHOLECALCIFE ROL (CALCIUM CARB-CHOLECALCIFE [...] visit with Dr Fletcher on 09/04/24. amiodarone [id number] QIEUSER QIEUSER ALLOPURINOL 300 MG TABS TAKE ONE TABLET BY MOUTH ONE TIME DAILY allopurinol [id number] QIEUSER QIEUSER ALBUTEROL SULFATE HFA 108 (90 Base) MCG/ACT AERS Inhale 1-2 Puffs by mouth every 4 hours while awake. albuterol sulfate [id number] QIEUSER QIEUSER ACETAMINOPHEN 325 MG TABS Take 2 Tablets (650 mg) by mouth every 4 hours if needed for Pain (For mild pain.). Max acetaminophen dose: 4000mg in 24 hrs. acetaminophen [id number] QIEUSER QIEUSER Medications Administered No information available. [...]
[2024-12-13 11:43] LABS: Hematocrit 39.3 % (33.0-51.0); Hemoglobin* 12.4 gm/dL (12.0-16.0); Immature Granulocytes Abs Auto 0.01 K/uL (0.00-0.30); Immature Granulocytes Pct Auto 0.1 %; Lymphocytes Absolute Auto 1.34 K/uL (0.90-2.90); Mean Corpuscular HGB Conc 32 gm/dL (32-36); Mean Corpuscular Hemoglobin 32 pg (26-34); Mean Corpuscular Volume 102 fL (80-100); RDW Coefficient of Variation % 14.8 % (11.5-15.5); Red Blood Count 3.86 m/uL (4.00-5.20); White Blood Count* 6.70 K/uL (4.50-11.00)
[2024-12-13 11:44] LABS: Slide Review Reflex No
[2024-12-13 11:58] LABS: Chloride* 97 mmol/L (96-114); Potassium* 3.5 mmol/L (3.6-5.1); Sodium* 138 mmol/L (135-149)
[2024-12-13 12:01] LABS: Blood Urea Nitrogen* 35 mg/dL (7-30); Creatinine* 1.9 mg/dL (0.5-1.5); Est. Creatinine Clearance* 17.26; Estimated Glomerular Filt Rate 25 ml/min
[2024-12-13 12:02] LABS: Anion Gap 4 mEq/L (7-15); Calcium* 9.3 mg/dL (8.4-10.6); Carbon Dioxide* 37 mmol/L (20-32); Glucose* 123 mg/dL (60-115)
[2024-12-13] MEDS: IPRAT-ALBUT 0.5-2.5 MG/3 ML NEB 1 NEB IH (12:06)
[2024-12-13 12:14] LABS: NT Pro B Type NatriureticPept* 1400 pg/mL (See Note)
[2024-12-13 12:27] VITALS: PULSE 70; RESP 18; O2SAT 91
== END 2024-12-13 12:37 | disposition home or self-care (01) ==
PROVIDERS: Emergency Provider Family Medicine; PCP Student in an Organized Health Care Education/Training Program
DX: L03.116 Cellulitis of left lower limb (principal); L03.115 Cellulitis of right lower limb; J81.1 Chronic pulmonary edema; R06.2 Wheezing
CPT/HCPCS: 36415; 71046; 80048; 83880; 84484; 85025; 86140; 93005; 99284; 99285